=== PATIENT | male | born 1960 | race Caucasian/White ===

== ENCOUNTER 2022-03-26 08:30 | Inpatient (IN) | payer OTHER, MEDICARE ==
[~2022-03-26] VITALS: Ht 165.1 cm; Wt 65.0 kg
[2022-03-26] VITALS (15 sets, daily range): BP systolic 88–114; BP diastolic 49–95
[2022-03-26] MEDS ORDERED: NS IV 1000 ML 1,000 ML IV STA ×2 (08:54→10:21)
[2022-03-26] MEDS ORDERED: RT-ALBUTEROL/IPRATROPIUM 3 ML (DUONEB) VIAL INH STA (08:54)
--- NOTE | 2022-03-26 09:04 | ED Cough/URI ---
General Chief Complaint: Respiratory Problems Stated Complaint: SOB; CHEST CONGESTION Source: patient History of Present Illness Date Seen by Provider: Mar 26, 2022 Time Seen by Provider: 08:32 Initial Comments 62-year-old male presenting with complaints of 4 days of cough and congestion. He has been getting more shortness of breath especially with exertion. [facility] He states he has a history of diabetes, coronary artery disease, peripheral vascular disease. He denies any allergies to medicines. He has had his COVID vaccinations and boosters but is unsure if he had vaccination for influenza this season or pneumonia vaccine. He has a chronic wound to his left foot from peripheral vascular disease and gangrene that he had last year. He is following with the wound clinic and states that he was called last night by the wound clinic saying that he had a critical potassium. He had blood work drawn today but because he was feeling so short of breath with minimal exertion he decided to check into the emergency department. He denies having fever, chills, body aches, nausea, vomiting, chest pain, abdominal pain. He denies ill contacts. In general he feels run down and short of breath, especially with any exertion. He has had cardiac stents and stent in left leg but denies congestive heart failure or COPD or asthma history. He has been taking Dayquil and Nyquil for his symptoms but not felt anything was improving. Timing/Duration: getting worse (over the last 4 days) Severity/Quality: productive cough (occasionally coughing up yellow green sputum) Prior Episodes/Possible Cause: no prior episodes Modifying Factors: Worse With Activity, Worse With Coughing Associated Symptoms: cough, nasal congestion, nasal drainage, shortness of breath (especially with exertion), wheezing Allergies and Home Medications Allergies Coded Allergies: No Known Drug Allergies (Unverified , 03/26/22) Patient Home Medication List Home Medication List Reviewed: Yes Review of Systems Review of Systems Constitutional: see HPI EENTM: see HPI Respiratory: see HPI Cardiovascular: see HPI Gastrointestinal: No nausea, No vomiting Genitourinary: No dysuria Musculoskeletal: no symptoms reported Skin: see HPI (healing wound on left foot) Psychiatric/Neurological: No Symptoms Reported Hematologic/Lymphatic: Denies Blood Clots Past Pffeqzc-[id number]-Tuifyp Hx Patient Social History Tobacco Use?: No Tobacco type used: Cigarettes Smoking Status: Former Smoker (quit Jan 2022) Substance use?: No Alcohol Use?: No Past Medical History Surgery/Hospitalization HX: Hypertension, coronary artery disease with stents, peripheral vascular disease with a stent in his left leg, diabetes insulin-dependent, chronic diabetic ulcer to the left foot Surgeries: Yes Physical Exam Vital Signs - First Documented 03/26/22 08:38 Temp 35.9 Pulse 87 Resp 17 B/P (MAP) 99/59 (72) Pulse Ox 100 O2 Delivery Room Air Capillary Refill : Height: '" Weight: lbs. oz. kg; BMI Method: General Appearance: mild distress (Appears to be having slight increase in work of breathing.), thin, other (Chronically ill-appearing) HEENT: PERRL/EOMI, pharynx normal Neck: non-tender, full range of motion, supple, normal inspection Respiratory: chest non-tender, no accessory muscle use, respiratory distress (Mild respiratory distress with slight increase in work of breathing), decreased breath sounds Cardiovascular: normal peripheral pulses, regular rate, rhythm, no edema, no JVD, no murmur Gastrointestinal: normal bowel sounds, non tender, soft, no pulsatile mass Extremities: normal range of motion, no calf tenderness 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, alert, oriented x 3 Skin: warm/dry, pallor Focused Exam Sepsis Stage: Ruled Out Reason for ruling out sepsis: [place] to be more dehydration Possible Source: Pulmonary Lactate Level 03/26/22 08:50: Lactic Acid Level 3.07*H 03/26/22 10:52: Lactic Acid Level 2.88*H Time of Focused Exam: 10:10 Respiratory: Chest Non Tender, No Accessory Muscle Use, No Respiratory Distress, Decreased Breath Sounds Cardiovascular: Regular Rate, Rhythm, No Edema, No Murmur, Normal Peripheral Pulses Capillary Refill: Less Than 3 Seconds Peripheral Pulses: 2+ Carotid (R), 2+ Carotid (L), 2+ Radial Pulses (R), 2+ Radial Pulses (L) Skin: warm/dry, pallor Lactic Acid Level Laboratory Tests Test 03/26/22 08:50 03/26/22 10:52 Lactic Acid Level 3.07 MMOL/L (0.50-2.00) *H 2.88 MMOL/L (0.50-2.00) *H Within 3hrs of presentation: Admin fluids, Admin ABX, Blood cultures prior to ABX's, Focus exam, Lactate level Progress/Results/Core Measures Suspected Sepsis SIRS Temperature: Pulse: Respiratory Rate: Laboratory Tests 03/26/22 08:50: White Blood Count 10.2 Blood Pressure / Mean: 03/26/22 08:50: Lactic Acid Level 3.07*H 03/26/22 10:52: Lactic Acid Level 2.88*H Laboratory Tests 03/26/22 08:50: Creatinine 1.47H, INR Comment 1.0, Platelet Count 389, Total Bilirubin 0.4 Results/Orders Lab Results Laboratory Tests Test 03/26/22 08:50 03/26/22 10:35 03/26/22 10:52 Range/Units White Blood Count 10.2 4.3-11.0 10^3/uL Red Blood Count 4.37 4.30-5.52 10^6/uL Hemoglobin 9.9 L 13.3-17.7 g/dL Hematocrit 31 L 40-54 % Mean Corpuscular Volume 72 L 80-99 fL Mean Corpuscular Hemoglobin 23 L 25-34 pg Mean Corpuscular Hemoglobin Concent 32 32-36 g/dL Red Cell Distribution Width 15.9 H 10.0-14.5 % Platelet Count 389 130-400 10^3/uL Mean Platelet Volume 8.9 L 9.0-12.2 fL Immature Granulocyte % (Auto) 1 % Neutrophils (%) (Auto) 88 H 42-75 % Lymphocytes (%) (Auto) 5 L 12-44 % Monocytes (%) (Auto) 6 0-12 % Eosinophils (%) (Auto) 0 0-10 % Basophils (%) (Auto) 0 0-10 % Neutrophils # (Auto) 9.0 H 1.8-7.8 10^3/uL Lymphocytes # (Auto) 0.5 L 1.0-4.0 10^3/uL Monocytes # (Auto) 0.6 0.0-1.0 10^3/uL Eosinophils # (Auto) 0.0 0.0-0.3 10^3/uL Basophils # (Auto) 0.0 0.0-0.1 10^3/uL Immature Granulocyte # (Auto) 0.1 0.0-0.1 10^3/uL Neutrophils % (Manual) 87 % Lymphocytes % (Manual) 5 % Monocytes % (Manual) 4 % Basophils % (Manual) 1 % Band Neutrophils 3 % Nucleated Red Blood Cells 2 Platelet Estimate NORMAL Polychromasia SLIGHT Hypochromasia MODERATE Poikilocytosis MODERATE Microcytosis MODERATE Macrocytosis SLIGHT [place] Cells MODERATE Elliptocytes SLIGHT Prothrombin Time 14.0 12.2-14.7 SEC INR Comment 1.0 0.8-1.4 Activated Partial Thromboplast Time 38 H 24-35 SEC D-Dimer 2.22 H 0.00-0.49 UG/ML Sodium Level 125 *L 135-145 MMOL/L Potassium Level 5.8 H 3.6-5.0 MMOL/L Chloride Level 91 L 98-107 MMOL/L Carbon Dioxide Level 18 L 21-32 MMOL/L Anion Gap 16 H 5-14 MMOL/L Blood Urea Nitrogen 65 H 7-18 MG/DL Creatinine 1.47 H 0.60-1.30 MG/DL Estimat Glomerular Filtration Rate 53 BUN/Creatinine Ratio 44 Glucose Level 189 H 70-105 MG/DL Lactic Acid Level 3.07 *H 2.88 *H 0.50-2.00 MMOL/L Calcium Level 9.0 8.5-10.1 MG/DL Corrected Calcium 9.2 8.5-10.1 MG/DL Magnesium Level 1.9 1.6-2.4 MG/DL Total Bilirubin 0.4 0.1-1.0 MG/DL Aspartate Amino Transf (AST/SGOT) 55 H 5-34 U/L Alanine Aminotransferase (ALT/SGPT) 71 H 0-55 U/L Alkaline Phosphatase 121 40-136 U/L Troponin I 0.86 *H <0.30 NG/ML Pro-B-Type Natriuretic Peptide 9208.0 H <125.0 PG/ML Total Protein 6.5 6.4-8.2 GM/DL Albumin 3.8 3.2-4.5 GM/DL Lipase 16 8-78 U/L Influenza Type A (RT-PCR) Not Detected Not Detecte Influenza Type B (RT-PCR) Not Detected Not Detecte SARS-CoV-2 RNA (RT-PCR) Not Detected Not Detecte My Orders Orders - CYNTHIA MORALES MD Cbc With Automated Diff (03/26/22 08:51) Magnesium (03/26/22 08:51) Chest 1 View Ap/Pa Only (03/26/22 08:51) Ekg Tracing (03/26/22 08:51) Comprehensive Metabolic Panel (03/26/22 08:51) Protime With Inr (03/26/22 08:51) Partial Thromboplastin Time (03/26/22 08:51) O2 (03/26/22 08:51) Monitor-Rhythm Ecg Trace Only (03/26/22 08:51) Ed Iv/Invasive Line Start (03/26/22 08:51) Lipase (03/26/22 08:51) Troponin I Fs (03/26/22 08:51) Probnp Fs (03/26/22 08:51) Fibrin Degradation Products (03/26/22 08:51) Covid 19 Inhouse Test (03/26/22 08:51) Influenza A And B By Pcr (03/26/22 08:51) Isolation Central Supply Req (03/26/22 08:51) Blood Culture (03/26/22 08:51) Lactic Acid Analyzer (03/26/22 08:51) Ua Culture If Indicated (03/26/22 08:54) Albuterol/Ipra Inhalation Soln (Duoneb I (03/26/22 08:54) Svn Small Volume Nebulizer (03/26/22 08:54) Ns Iv 1000 Ml (Sodium Chloride 0.9%) (03/26/22 08:54) Manual Differential (03/26/22 08:50) Aspirin Chewable Tablet (Baby Aspirin Ch (03/26/22 09:37) Ceftriaxone 1 Gm Pre-Mix (Rocephin 1 Gm (03/26/22 09:37) Azithromycin Tablet (Zithromax Tablet) (03/26/22 09:37) Ct Angio Chest W (R/O Pe) (03/26/22 10:20) Ed Admission (Communication) (03/26/22 10:20) Ns Iv 1000 Ml (Sodium Chloride 0.9%) (03/26/22 10:21) Enoxaparin Injection (Lovenox Injection) (03/26/22 10:21) Ct Angio Chest W (R/O Pe) (03/26/22 11:04) Ct Angio Chest W (R/O Pe) (03/26/22 ) Furosemide Injection (Lasix Injection) (03/26/22 11:12) Iohexol Injection (Omnipaque 350 Mg/Ml 1 (03/26/22 11:30) Received Contrast (Hold Metformin- Contr (03/26/22 11:30) Ns (Ivpb) (Sodium Chloride 0.9% Ivpb Bag (03/26/22 11:30) Medications Given in ED Current Medications Medications Dose Ordered Sig/Michele Route Start Time Stop Time Status Last Admin Dose Admin Iohexol 100 ml ONCE ONCE IV 03/26/22 11:30 03/26/22 11:31 DC 03/26/22 11:31 80 ML Sodium Chloride 100 ml ONCE ONCE IV 03/26/22 11:30 03/26/22 11:31 DC 03/26/22 11:31 80 ML Vital Signs/I&O 03/26/22 08:38 Temp 35.9 Pulse 87 Resp 17 B/P (MAP) 99/59 (72) Pulse Ox 100 O2 Delivery Room Air Capillary Refill : Progress Note #1: Progress Note Patient at risk for life-threatening condition such as pulmonary embolism, coronary artery disease, myocardial infarction, acute congestive heart failure, renal failure, hepatic failure, COVID, influenza, sepsis, pneumothorax, pulmonary mass. Evaluate by ordering labs including CBC, chemistry panel, coags, D-dimer, urinalysis, electrocardiogram, chest x-ray, COVID swab, influenza swab, blood cultures with lactic acid. His blood pressure is running in the 95-100 systolic range so we will order normal saline 1 L IV fluid bolus for hydration. Give DuoNeb breathing treatment to try and help with his increased work of breathing. Reviewed chest x-ray when available to look for signs of infiltrate, pneumonia, pleural effusion, pneumothorax, pulmonary vascular congestion for heart failure. His oxygen saturation was 100% on room air and he was afebrile. His heart rate is in the 80s and sinus rhythm. He is able to speak in complete sentences but feels that he is short of breath. He states this is worse with exertion so concern for congestive heart failure, infection, pulmonary mass are all in his differential. Has chronic medical conditions increases risk for morbidity and mortality since he has poorly controlled diabetes, hypertension, peripheral vascular disease, coronary artery disease, quit smoking only 2 months ago. Placed on cardiac threat monitoring analyst to watch for arrhythmias or acute changes in his heart rate and vital signs. On my personal interpretation of his telemetry monitoring he was in a sinus rhythm with a heart rate in the 80s. There was no ectopy or ischemic changes on telemetry monitoring. Progress Note #2: Time: 09:20 Progress Note On my personal interpretation and review of his chest x-ray he has increased pulmonary vascular congestion with mild cardiomegaly and bilateral blunting of costophrenic angle for probable pleural effusion bilaterally. No definite infiltrate for pneumonia. No prior chest x-ray for comparison. On my personal interpretation and review of his electrocardiogram he has no prior for comparison but he has global T wave flattening and no definite ST elevation. he has Q waves in anteroseptal leads. Awaiting labs and Covid swab/Influenza swab. Progress Note #3: Time: 09:33 Progress Note Lab called with critical findings of Lactic acid of 3.07 and Troponin 0.86 and Sodium 125. Will give aspirin 324 mg po with him having elevated Troponin and concern for Non STEMI. He is getting 1 L of NS with his soft blood pressure which will help with the elevated Lactic acid and acute kidney injury with elevated BUN and Cr. With him having chronic wound in his foot this could be source of infection in addition to URI symptoms so will cover with Ceftriaxone and Azithromycin. Will have him sign record release to see if [facility] can get us any records so we can have baseline labs and cardiac testing to refer back to for comparison with testing with his current stay. Will contact Dr. Valentine for Hospitalist service to check about admit to [facility]. [id number] Valentine for the hospitalist service. Advised him of the patient's presentation as well as his current lab findings and vital signs. With his signs of a non-STEMI, heart failure, acute kidney injury, dehydration and elevated lactic acid he accepted the patient for admission to the cardiac stepdown bed. He did request to go ahead and obtain a CT angiogram of his chest since the patient had an elevated D-dimer. This would help to rule out pulmonary embolism, pulmonary mass, pulmonary infection. Continue with normal saline at 100 mL an hour for hydration. His oxygen titration continues to be 97 to 100% on room air. Patient states he is feeling a little better with tr eatment in the ED and with the DuoNeb breathing treatment. Dr. Valentine did request to go ahead and administer Lovenox for the patient with the elevated troponin. Will dose with 1 mg/kg or 60 mg subcu x1. Consult to cardiology and will page Dr. Guerrero. The elevated lactic acid was felt to be more secondary to dehydration than sepsis but he has been treated with IV fluids, antibiotics, blood cultures. Nasal swab checking for COVID and influenza still pending. Progress Note #4: Time: 11:12 Progress Note Respiratory swab for COVID and influenza was negative. [address] Guerrero. Advised him of the patient's presentation and findings for non-STEMI with elevated creatinine and elevated troponin with proBNP of 9200. He was in agreement with the Lovenox and aspirin and did request to give a single dose of Lasix 40 mg IV x1 since he was showing some signs of heart failure with elevated proBNP and increased pulmonary vascular congestion. Otherwise he advised that he would see the patient in consult and work with Dr. Valentine for continued care. Patient continues to have cardiac telemetry monitoring showing a normal sinus rhythm in the 80s without ectopy. His blood pressure is 106/65 with IV fluids. His oxygen saturation remains 97 to 100% on room air. He did have increased breath movement after the DuoNeb breathing treatment. He remained hemodynamically stable here in ED and awaiting EMS for transport to [facility]. He did receive Lovenox 60 mg SC and was getting Normal Saline at 100 mls/hr for hydration. Will administer the Furosemide 40 mg IV prior to transfer. He went for CT angiography of his chest at 1120. Progress Note #5: Time: 12:06 Progress Note His repeat Lactic acid was slightly improved down to 2.88 from initial 3.07. Continue with gentle hydration and monitoring. I reviewed the radiologist report on the CT angiogram of the chest. This showed no pulmonary embolism but he did have pleural effusion and changes in the right lower lobe for possible atypical infection. He has had initial treatment with Rocephin and Zithromax for possible pulmonary infection. Continued care with the hospitalist, Dr. Valentine, and safety and health consultant, Dr. Guerrero. ECG Initial ECG Impression Date: Mar 26, 2022 Initial ECG Impression Time: 08:51 Initial ECG Rate: 85 Initial ECG Rhythm: Normal Sinus Initial ECG Comparisson: No Previous ECG Available Comment On my personal interpretation and review of his electrocardiogram he shows a sinus rhythm with a heart rate of 85 bpm. ID interval [address] elevation. QT interval 381 ms with a QTc interval 423 ms. There is no prior tracing available for comparison. He does have some global T wave flattening. He has Q waves in the anteroseptal leads. Diagnostic Imaging Diagonstic Imaging: Xray Plain Films/CT/US/NM/MRI: chest Comments [facility] [place] NAME: ENRIQUE FLORES [facility] REC#: [id number] PT STATUS: REG ER : 1960 PHYSICIAN: CYNTHIA MORALES MD ADMIT DATE: 03/26/22/ER FS Draft Date of Exam:03/26/22 CHEST 1 VIEW AP/PA ONLY EXAMINATION: Chest, 1 view. HISTORY: Cough, congestion, short of breath, COVID PUI. COMPARISON: None available. FINDINGS: Heart size and pulmonary vasculature are normal. There are trace bilateral pleural effusions or pleural thickening. No consolidation or pneumothorax. The osseous structures are intact. IMPRESSION: Trace bilateral pleural effusions or pleural thickening. No other acute radiographic abnormality in the chest. Dictated on workstation # [id number] Dict: 03/26/22907 Trans: 03/26/22 0910 [id number] Interpreted by: THERON LOPEZ DO Electronically signed by: Reviewed: Reviewed by Me Diagonstic Imaging: CT (Angiography) Plain Films/CT/US/NM/MRI: chest Comments NAME: ENRIQUE FLORES [facility] REC#: [id number] PT STATUS: REG ER : 1960 PHYSICIAN: CYNTHIA MORALES MD ADMIT DATE: 03/26/22/ER FS Draft Date of Exam:03/26/22 CT ANGIO CHEST W (R/O PE) EXAMINATION: CT angiography of the chest. TECHNIQUE: Contrast enhanced thin section helical images were obtained through the chest with intravenous contrast timed for the optimal opacification of the arterial structures per CTA protocol. Post-processing, reconstructions and interpretation of angiographic images of the vessels was performed. 3D MIP reconstructions were performed and reviewed. All CT scans use one or more of the following dose optimizing techniques: automated exposure control, MA and/or KvP adjustment based on a patient size and exam type, or iterative reconstruction. HISTORY: SOB COMPARISON: None available. FINDINGS: Vascular: There are no filling defects within the pulmonary arteries. There are vascular calcifications of the aorta and coronary vessels without aneurysm. Thyroid: The thyroid is normal. Mediastinum: Heart size is normal without significant pericardial effusion. No suspicious lymphadenopathy. Lungs and airways: There is a moderate right pleural effusion. Mild groundglass opacities or atelectasis within the lung bases, right greater than left. No pneumothorax. There is a calcified granuloma within the right lower lobe. The airways are normal. Upper abdomen: The subphrenic structures are normal. Musculoskeletal: Degenerative changes of the spine without suspicious osseous lesion or compression fracture. IMPRESSION: 1. No findings of pulmonary embolus. 2. Right pleural effusion with adjacent atelectasis or ground glass opacities. Differentiation would include atypical infection. Dictated on workstation # [id number] Dict: 03/26/22 1144 Trans: 03/26/22 1156 [id number] Interpreted by: THERON LOPEZ DO Electronically signed by: Reviewed: Reviewed by Me Critical Care Note Critical Care Total Time (minutes) 60 minutes Progress 60 minutes of critical care time was spent with the patient. Time excludes separately billable procedures. Time was spent obtaining history and information from the patient as well as [facility], ordering tests and reviewing results, ordering interventions and reviewing response, discussion with patient and with consultants, documentation in the chart. Patient was at risk of increased morbidity and mortality due to his cardiac status, renal status, electrolyte imbalance, elevated lactic acid, relative hypotension. He required my direct oversight and management of his care to help treat him and try to prevent failure or further compromise of his cardiovascular, renal, metabolic systems. Departure Communication (Admissions) Time/Spoke to Admitting Phy: 10:[address] Valentine for the hospitalist service. Advised him of the patient's presentation as well as his current lab findings and vital signs. With his signs of a non-STEMI, heart failure, acute kidney injury, dehydration and elevated lactic acid he accepted the patient for admission to the cardiac stepdown bed. He did request to go ahead and obtain a CT angiogram of his chest since the patient had an elevated D-dimer. This would help to rule out pulmonary embolism, pulmonary mass, pulmonary infection. Continue with normal saline at 100 mL an hour for hydration. His oxygen titration continues to be 97 to 100% on room air. Patient states he is feeling a little better with treatment in the ED and with the DuoNeb breathing treatment. Dr. Valentine did request to go ahead and administer Lovenox for the patient with the elevated troponin. Will dose with 1 mg/kg or 60 mg subcu x1. Consult to cardiology and will page Dr. Guerrero. The elevated lactic acid was felt to be more secondary to dehydration than sepsis but he has been treated with IV fluids, antibiotics, b lood cultures. Nasal swab checking for COVID and influenza still pending. Time/Spoke to Consulting Phy: 11:[address] Guerrero. Advised him of the patient's presentation and findings for non-STEMI with elevated creatinine and elevated troponin with proBNP of 9200. He was in agreement with the Lovenox and aspirin and did request to give a single dose of Lasix 40 mg IV x1 since he was showing some signs of heart failure with elevated proBNP and increased pulmonary vascular congestion. Otherwise he advised that he would see the patient in consult and work with Dr. Valentine for continued care. Impression Primary Impression: Non-ST elevation [place] (NSTEMI) Additional Impressions: Acute kidney injury Dehydration Elevated lactic acid level Hyponatremia Hyperkalemia Congestive heart failure Qualified Codes: I50.9 - Heart failure, unspecified Upper respiratory infection with cough and congestion Dyspnea on exertion Bilateral pleural effusion Disposition: 30 STILL A PATIENT Condition: Critical Admissions Decision to Admit Reason: Admit from ER (General) Decision to Admit/Date: Mar 26, 2022 Time/Decision to Admit Time: 10:17 Departure-Patient Inst. Referrals: NO,LOCAL PHYSICIAN (PCP/Family) Primary Care Physician CYNTHIA MORALES MD Mar 26, 2022 09:04
[2022-03-26 09:07] LABS: BASOPHILS % (AUTO) 0 % (0-10); EOSINOPHILS % (AUTO) 0 % (0-10); HEMATOCRIT 31 % (40-54); HEMOGLOBIN 9.9 g/dL (13.3-17.7); LYMPHOCYTES # (AUTO) 0.5 10^3/uL (1.0-4.0); LYMPHOCYTES % (AUTO) 5 % (12-44); MEAN CORPUSCULAR HEMOGLOBIN 23 pg (25-34); MEAN CORPUSCULAR HGB CONC 32 g/dL (32-36); MEAN CORPUSCULAR VOLUME 72 fL (80-99); MEAN PLATELET VOLUME 8.9 fL (9.0-12.2); MONOCYTES # (AUTO) 0.6 10^3/uL (0.0-1.0); MONOCYTES % (AUTO) 6 % (0-12); NEUTROPHILS % (AUTO) 88 % (42-75); PLATELET COUNT 389 10^3/uL (130-400); WHITE BLOOD COUNT 10.2 10^3/uL (4.3-11.0)
--- NOTE | 2022-03-26 09:10 | Diagnostic Imaging Report ---
EXAMINATION: Chest, 1 view. HISTORY: Cough, congestion, short of breath, COVID PUI. COMPARISON: None available. FINDINGS: Heart size and pulmonary vasculature are normal. There are trace bilateral pleural effusions or pleural thickening. No consolidation or pneumothorax. The osseous structures are intact. IMPRESSION: Trace bilateral pleural effusions or pleural thickening. No other acute radiographic abnormality in the chest. Dictated by: Dictated on workstation # [id number]
[2022-03-26 09:24] LABS: FIBRIN DEGRADATION PRODUCTS 2.22 UG/ML (0.00-0.49)
[2022-03-26 09:32] LABS: CREATININE SERUM 1.47 MG/DL (0.60-1.30); POTASSIUM 5.8 MMOL/L (3.6-5.0)
[2022-03-26 09:33] LABS: ALBUMIN 3.8 GM/DL (3.2-4.5); BILIRUBIN,TOTAL 0.4 MG/DL (0.1-1.0); MAGNESIUM 1.9 MG/DL (1.6-2.4); TOTAL PROTEIN 6.5 GM/DL (6.4-8.2)
[2022-03-26] MEDS ORDERED: ASPIRIN 81 MG CHEW (CHILDREN'S ASA) PO STA (09:37)
[2022-03-26] MEDS ORDERED: cefTRIAXone 1 GM PRE-MIX 50 ML IV STA (09:37)
[2022-03-26] MEDS ORDERED: AZITHROMYCIN 250 MG TAB (ZITHROMAX) PO STA (09:37)
[2022-03-26 10:05] LABS: BAND NEUTROPHILS 3 %; BASOPHILS % (MANUAL) 1 %; HYPOCHROMASIA MODERATE; LYMPHOCYTES % (MANUAL) 5 %; MONOCYTES % (MANUAL) 4 %; NEUTROPHILS % (MANUAL) 87 %; PLATELET ESTIMATE NORMAL; POIKILOCYTOSIS MODERATE; POLYCHROMASIA SLIGHT
[2022-03-26 10:06] LABS: ELLIPT/OVALOCYTES SLIGHT; MICROCYTOSIS MODERATE
[2022-03-26 10:07] LABS: BURR CELLS MODERATE; NUCLEATED RED BLOOD CELLS 2
[2022-03-26] MEDS ORDERED: ENOXAPARIN 60 MG/0.6 ML (LOVENOX) SYR SC STA (10:21)
[2022-03-26] MEDS ORDERED: FUROSEMIDE 40 MG/4 ML INJ (LASIX) IVP STA (11:12)
[2022-03-26] MEDS ORDERED: NS 100 ML (IVPB) BAG IV ONE (11:30)
[2022-03-26] MEDS ORDERED: HOLD METFORMIN - RECEIVED CONTRAST 20 ML VIAL IV SCH (11:30)
[2022-03-26] MEDS ORDERED: IOHEXOL 350 MG/ML 100 ML (OMNIPAQUE 350) VIAL IV ONE (11:30)
--- NOTE | 2022-03-26 11:57 | Diagnostic Imaging Report ---
EXAMINATION: CT angiography of the chest. TECHNIQUE: Contrast enhanced thin section helical images were obtained through the chest with intravenous contrast timed for the optimal opacification of the arterial structures per CTA protocol. Post-processing, reconstructions and interpretation of angiographic images of the vessels was performed. 3D MIP reconstructions were performed and reviewed. All CT scans use one or more of the following dose optimizing techniques: automated exposure control, MA and/or KvP adjustment based on a patient size and exam type, or iterative reconstruction. HISTORY: SOB COMPARISON: None available. FINDINGS: Vascular: There are no filling defects within the pulmonary arteries. There are vascular calcifications of the aorta and coronary vessels without aneurysm. Thyroid: The thyroid is normal. Mediastinum: Heart size is normal without significant pericardial effusion. No suspicious lymphadenopathy. Lungs and airways: There is a moderate right pleural effusion. Mild groundglass opacities or atelectasis within the lung bases, right greater than left. No pneumothorax. There is a calcified granuloma within the right lower lobe. The airways are normal. Upper abdomen: The subphrenic structures are normal. Musculoskeletal: Degenerative changes of the spine without suspicious osseous lesion or compression fracture. IMPRESSION: 1. No findings of pulmonary embolus. 2. Right pleural effusion with adjacent atelectasis or ground glass opacities. Differentiation would include atypical infection. Dictated by: Dictated on workstation # [id number]
[2022-03-26] MEDS ORDERED: polyethylene glycoL POWDER 17 GM (MIRALAX) PACK PO PRN (12:45)
[2022-03-26] MEDS ORDERED: MELATONIN 3 MG TABLET PO PRN (12:45)
[2022-03-26] MEDS ORDERED: ANTACID SUSP 30 ML UDC (MYLANTA) PO PRN (12:45)
[2022-03-26] MEDS ORDERED: NS IV 500 ML 500 ML IV PRN (12:45)
[2022-03-26] MEDS ORDERED: BISACODYL 10 MG SUPP (DULCOLAX) PR PRN (12:45)
[2022-03-26] MEDS ORDERED: ONDANSETRON 4 MG (ZOFRAN) ORAL DISSOLVE TAB PO PRN (12:45)
[2022-03-26] MEDS ORDERED: ONDANSETRON 4 MG/2 ML (SDV) Z0FRAN IV PRN (12:45)
[2022-03-26] MEDS ORDERED: diphenhydrAMINE 50 MG/ML INJ (BENADRYL) IVP PRN (12:45)
[2022-03-26] MEDS ORDERED: diphenhydrAMINE 25 MG TAB (BENADRYL) PO PRN (12:45)
[2022-03-26] MEDS ORDERED: ACETAMINOPHEN 325 MG TABLET PO PRN (12:45)
[2022-03-26] MEDS ORDERED: ENOXAPARIN 100 MG/1 ML (LOVENOX) SYR SC SCH (12:45)
--- NOTE | 2022-03-26 13:01 | Consultation-Cardiology ---
HPI-Cardiology Cardiology Consultation: Date of Consultation 03/26/22 Time Seen by a Provider: 12:50 Date of Admission 03-26-22 Attending Physician Aurelia,Local Physician Admitting Physician Admitting Physician: Pallavi Valentine MD Attending Physician: Pallavi Valentine MD Consulting Physician Afsaneh Guerrero MD HPI: Chief Complaint: Elevated troponin CHF Mr. Flores is a 62 yr old male admitted to ICU 5 from the ED in [place], [place]. He reports for the past 5 days he has had increasing SOB, productive cough, diarrhea and poor appetite. He reports he has had chest wall pain from coug genesis. He reports abdominal discomfort. He denies any fever or chills. He reports increasing weakness, fatigue and dizziness. He states he has non- healing, gangrenous wound to his left foot for which he has been seeing Dr. Gomez at [facility] wound care. He reports he has had mild swelling of his right foot. He reports he has been compliant with his medications. Review of Systems-Cardiology Review of Systems Constitutional: chills; No fever; malaise Eyes: No vision change Ears/Nose/Throat: No epistaxis, No recent hearing loss Respiratory: As described under HPI Cardiovascular: As described under HPI Gastrointestinal: As described under HPI Genitourinary: No dysuria, No hematuria Musculoskeletal: other (chronic back pain) Skin: other (wound to left foot) Psychiatric/Neurological: No anxiety, No depression, No seizure, No focal weakness, No syncope Hematologic: No bleeding abnormalities VAN-Ytfubn-Pygzsd Hx Patient Social History Smoking Status: Former Smoker Have you traveled recently?: No Alcohol Use?: No Pt feels they are or have been: No Tobacco type used: Cigarettes Past Medical History PMH As described under Assessment. Family Medical History Family Medical History: He reports his father had CHF. Allergies and Home Medications Allergies Coded Allergies: No Known Drug Allergies (Unverified , 03/26/22) Patient Home Medication List Aspirin (Aspirin EC) 81 Mg Tablet., 81 MG PO HS, (Reported) Entered as Reported by: LORENZO QUINTANILLA on 03/26/221616 Last Action: Held Atorvastatin Calcium (Atorvastatin Calcium) 80 Mg Tablet, 40 MG PO HS, (Reported) Entered as Reported by: LORENZO QUINTANILLA on 03/26/221616 Last Action: Continued Carvedilol (Carvedilol) 12.5 Mg Tablet, 6.25 MG PO BID, (Reported) Entered as Reported by: LORENZO QUINTANILLA on 03/26/221616 Last Action: Held Cholecalciferol (Vitamin D3) (Vitamin D3) 25 Mcg (1000 Unit) Tablet, 25 MCG PO DAILY, (Reported) Entered as Reported by: LORENZO QUINTANILLA on 03/26/221616 Last Action: Held Clopidogrel Bisulfate (Clopidogrel) 75 Mg Tablet, 75 MG PO DAILY, (Reported) Entered as Reported by: LORENZO QUINTANILLA on 03/26/221616 Last Action: Continued Cyclobenzaprine HCl (Cyclobenzaprine HCl) 10 Mg Tablet, 5-10 MG PO BID PRN for MUSCLE SPASMS, (Reported) Entered as Reported by: LORENZO QUINTANILLA on 03/26/221616 Last Action: Held Empagliflozin (Jardiance) 25 Mg Tablet, 25 MG PO HS, (Reported) Entered as Reported by: LORENZO QUINTANILLA on 03/26/221616 Last Action: Held Gabapentin (Neurontin) 300 Mg Capsule, 300 MG PO BID, (Reported) Entered as Reported by: LORENOZ QUINTANILLA on 03/26/221616 Last Action: Held Insulin Aspart (Novolog) 100 Unit/Ml Susp, 5-7 UNITS SC TID, (Reported) Entered as Reported by: LORENZO QUINTANILLA on 03/26/221616 Last Action: Held Insulin Glargine,Hum.rec.anlog (Lantus) 100 Unit/Ml Vial, 40 UNITS SC HS, (Reported) Entered as Reported by: LORENZO QUINTANILLA on 03/26/221616 Last Action: Converted Lisinopril (Lisinopril) 10 Mg Tablet, 5 MG PO DAILY, (Reported) Entered as Reported by: LORENZO QUINTANILLA on 03/26/221616 Last Action: Held Metformin HCl (Metformin HCl) 1,000 Mg Tablet, 1,000 MG PO BID WITH MEALS, (Reported) Entered as Reported by: LORENZO QUINTANILLA on 03/26/221616 Last Action: Held Mirtazapine (Mirtazapine) 15 Mg Tablet, 7.5 MG PO HS, (Reported) Entered as Reported by: LORENZO QUINTANILLA on 03/26/221616 Last Action: Converted Naproxen (Naproxen) 500 Mg Tablet, 500 MG PO BID PRN for PAIN-MILD (1-4), (Reported) Entered as Reported by: LORENZO QUINTANILLA on 03/26/221616 Last Action: Held Physical Exam-Cardiology Physical Exam Vital Signs/I&O 03/26/22 03/26/22 03/26/22 03/26/22 21:00 22:14 22:19 23:00 Pulse 97 101 102 Resp 15 34 21 B/P (MAP) 99/64 (76) 96/65 (75) 94/67 (76) Pulse Ox 95 94 98 99 O2 Delivery Room Air Room Air Room Air Room Air 03/26/22 03/27/22 03/27/22 03/27/22 23:24 00:01 01:00 01:00 Temp 36.3 Pulse 101 98 97 97 Resp 18 B/P (MAP) 94/67 (76) 95/64 (74) 98/69 (79) Pulse Ox 98 100 96 O2 Delivery Room Air Room Air Room Air 03/27/22 03/27/22 03/27/22 03/27/22 02:00 03:00 03:12 03:45 Temp 36.7 Pulse 98 102 97 Resp 18 B/P (MAP) 82/63 (69) 103/77 (86) 103/77 (86) Pulse Ox 98 99 98 99 O2 Delivery Room Air Room Air Room Air Room Air 03/27/22 03/27/22 03/27/22 03/27/22 04:00 05:00 06:00 06:58 Pulse 94 99 93 97 B/P (MAP) 97/70 (79) 106/73 (84) 96/83 (87) Pulse Ox 100 96 99 O2 Delivery Room Air Room Air Room Air 03/27/22 03/27/22 03/27/22 07:00 07:23 08:00 Temp 36.1 Pulse 96 97 Resp 12 14 B/P (MAP) 115/77 (90) 119/81 (94) Pulse Ox 98 99 O2 Delivery Room Air Room Air 03/27/22 00:00 Intake Total 150 ml Output Total 1000 ml Balance -850 ml Capillary Refill : Less Than 3 Seconds Constitutional: AAO x 3, well-developed, well-nourished HEENT: PERRL, hearing is well preserved, oral hygience is good Neck: No carotid bruit; carotid pulses are 2 + bilaterally Respiratory: No accessory muscle use, No respiratory distress; chest expansion is symmetric, other (diminished bases bilat) Cardiovascular: regular rate-rhythm; No JVD; S1 and S2 Gastrointestinal: No tender; soft, audible bowel sounds Extremities: no lower extremity edema bilateral Neurologic/Psychiatric: grossly intact (moves all extremities) Skin: pallor, other (dressing to left foot - not removed) Data Review Labs Laboratory Tests 03/26/22 10:35: Influenza Type A (RT-PCR) Not Detected, Influenza Type B (RT-PCR) Not Detected, SARS-CoV-2 RNA (RT-PCR) Not Detected 03/26/22 10:52: Lactic Acid Level 2.88*H 03/26/22 13:10: Lactic Acid Level 3.43*H, Erythrocyte Sedimentation Rate 16, Sodium Level 126L, Potassium Level 5.1H, Chloride Level 97L, Carbon Dioxide Level 14L, Anion Gap 15H, Blood Urea Nitrogen 64H, Creatinine 1.60H, Estimat Glomerular Filtration Rate 48, BUN/Creatinine Ratio 40, Glucose Level 195H, Calcium Level 8.5, Troponin I 1.951*H, C-Reactive Protein High Sensitivity 3.17H, Prealbumin 16.9L, Procalcitonin 0.07 03/26/22 15:20: Lactic Acid Level 3.74*H 03/26/22 16:46: Iron Level 15L, Total Iron Binding Capacity 291, Unsaturated Iron Binding Capacity 276, Transferrin % Saturation 5L, Ferritin 42.1 03/26/22 17:26: Lactic Acid Level 3.05*H, Troponin I 1.756*H 03/26/22 17:34: Glucometer 204H 03/26/22 19:38: Lactic Acid Level 2.11*H 03/26/22 21:07: Glucometer 228H 03/26/22 21:43: Lactic Acid Level 1.37 03/27/22 04:32: White Blood Count 8.5, Red Blood Count 3.69L, Hemoglobin 8.4L, Hematocrit 26L, Mean Corpuscular Volume 71L, Mean Corpuscular Hemoglobin 23L, Mean Corpuscular Hemoglobin Concent 32, Red Cell Distribution Width 15.9H, Platelet Count 361, Mean Platelet Volume 9.0, Immature Granulocyte % (Auto) 1, Neutrophils (%) (Auto) 80H, Lymphocytes (%) (Auto) 8L, Monocytes (%) (Auto) 11, Eosinophils (%) (Auto) 0, Basophils (%) (Auto) 1, Neutrophils # (Auto) 6.8, Lymphocytes # (Auto) 0.7L, Monocytes # (Auto) 1.0, Eosinophils # (Auto) 0.0, Basophils # (Auto) 0.1, Immature Granulocyte # (Auto) 0.0 03/27/22 04:39: Sodium Level 133L, Potassium Level 4.6, Chloride Level 103, Carbon Dioxide Level 19L, Anion Gap 11, Blood Urea Nitrogen 55H, Creatinine 1.19, Estimat Glomerular Filtration Rate 69, BUN/Creatinine Ratio 46, Glucose Level 91, Calcium Level 8.3L, Corrected Calcium 8.9, Magnesium Level 1.9, Total Bilirubin 0.2, Aspartate Amino Transf (AST/SGOT) 52H, Alanine Aminotransferase (ALT/SGPT) 88H, Alkaline Phosphatase 96, Total Protein 5.6L, Albumin 3.3, Procalcitonin 0.07 03/27/22 05:18: Glucometer 71 03/27/22 06:17: Glucometer 81 Microbiology 03/26/22 Gram Stain, Resulted Pending 03/26/22 Wound Culture - Preliminary, Resulted Gram Negative Lul Radiology NAME: ENRIQUE FLORES [facility] REC#: [id number] PT STATUS: REG ER : 1960 PHYSICIAN: CYNTHIA MORALES MD ADMIT DATE: 03/26/22/ER FS Draft Date of Exam:03/26/22 CT ANGIO CHEST W (R/O PE) EXAMINATION: CT angiography of the chest. TECHNIQUE: Contrast enhanced thin section helical images were obtained through the chest with intravenous contrast timed for the optimal opacification of the arterial structures per CTA protocol. Post-processing, reconstructions and interpretation of angiographic images of the vessels was performed. 3D MIP reconstructions were performed and reviewed. All CT scans use one or more of the following dose optimizing techniques: automated exposure control, MA and/or KvP adjustment based on a patient size and exam type, or iterative reconstruction. HISTORY: SOB COMPARISON: None available. FINDINGS: Vascular: There are no filling defects within the pulmonary arteries. There are vascular calcifications of the aorta and coronary vessels without aneurysm. Thyroid: The thyroid is normal. Mediastinum: Heart size is normal without significant pericardial effusion. No suspicious lymphadenopathy. Lungs and airways: There is a moderate right pleural effusion. Mild groundglass opacities or atelectasis within the lung bases, right greater than left. No pneumothorax. There is a calcified granuloma within the right lower lobe. The airways are normal. Upper abdomen: The subphrenic structures are normal. Musculoskeletal: Degenerative changes of the spine without suspicious osseous lesion or compression fracture. IMPRESSION: 1. No findings of pulmonary embolus. 2. Right pleural effusion with adjacent atelectasis or ground glass opacities. Differentiation would include atypical infection. Dictated on workstation # [id number] Dict: 03/26/22 1144 Trans: 03/26/22 1156 [id number] Interpreted by: THERON LOPEZ DO Electronically signed by: NAME: ENRIQUE FLORES [facility] REC#: [id number] PT STATUS: REG ER : 1960 PHYSICIAN: CYNTHIA MORALES MD ADMIT DATE: 03/26/22/ER FS Signed Date of Exam:03/26/22 CHEST 1 VIEW AP/PA ONLY EXAMINATION: Chest, 1 view. HISTORY: Cough, congestion, short of breath, COVID PUI. COMPARISON: None available. FINDINGS: Heart size and pulmonary vasculature are normal. There are trace bilateral pleural effusions or pleural thickening. No consolidation or pneumothorax. The osseous structures are intact. IMPRESSION: Trace bilateral pleural effusions or pleural thickening. No other acute radiographic abnormality in the chest. Dictated by: Dictated on workstation # [id number] Dict: 03/26/22 0908 Trans: 03/26/22919 [id number] Interpreted by: THERON LOPEZ DO Electronically signed by: THERON LOPEZ DO 03/26/22919 ECG Impression ECG Initial ECG Rhythm: Normal Sinus A/P-Cardiology Assessment/Admission Diagnosis Elevated troponin - NSTEMI vs Type 2 MA d/t acute renal failure, sepsis and heart failure Decompensated CHF Sepsis - management per medical services Aute renal failure - likely acute on chronic Electrolyte abnormalities Elevated bilirubin level of undetermined etiology H/O CAD - MA with stents placed in 2000 and 2006 at [facility] H/O HTN HLD DM H/O gangrenous wound to left foot - follows with Dr. Gomez at [facility] for wound care Probable COPD H/O tobaccoism - quit 2 months ago Discussion and Recomendations Elevated troponin - NSTEMI (ACS) vs Type II MA secondary to CHF, sepsis - continue ASA and Lovenox - start BB when BP is adequate CHF - treat with diuretics Acute renal insufficiency - Continue IVF Sepsis - undetermined source - management per medical services Management of left foot wound per medical services Monitor lab closely Replace electrolytes as indicated Further recs will be based on his hospital course We would like to thank medical services for this consult WARD ENGLISH Mar 26, 2022 13:01
[2022-03-26 13:41] LABS: CALCIUM 8.3 MG/DL (8.5-10.1); CREATININE SERUM 1.56 MG/DL (0.60-1.30)
[2022-03-26] MEDS ORDERED: RT-ALBUTEROL/IPRATROPIUM 3 ML (DUONEB) VIAL INH PRN (14:00)
[2022-03-26] MEDS: NS IV 1000 ML 1,000 ML IV SCH (14:15)
--- NOTE | 2022-03-26 15:07 | Wound Care Assessment ---
Wound Care Assessment Date Seen by Provider: Mar 26, 2022 Time Seen by Provider: 15:02 Chief Complaint DFU L. lateral foot HPI This pleasant 62 year old gentleman presents to our hospital with cardiac concerns (NSTEMI and CHF exacerbation). He is noted to have chronic ulceration to left lateral foot (per patient present for >1 year). He has been under the care of Dr. Virgilio Gomez and had plans for plain films of area and outpatient wound vac to initiate at next office visit. He does have a reported h/o PAD with stenting in the past. He is a former smoker (quit in January). He does have anemia of unknown etiology and mild acute kidney injury. He has elevated lactic acid and is currently undergoing workup by primary team. Wound cultures and blood cultures are ordered. He is currently on Rocephin and Azithromycin. He has a long h/o DM and states that he has good glycemic control with average FSBS 120-150's generally. He has been slightly higher today on admit. I agree with current work up and will plan for Vashe bid WTD and plain films (when stable to do so). I will also add ESR, CRP and prealbumin to blood in lab. He is advised on the importance of F/U with Dr. Gomez upon discharge to continue with outpatient plan of care. Past Medical History: Admits Diabetes Type II, Admits Heart Disease, Admits Myocardial Infarction, Admits Peripheral Artery Disease Smoking Status: Former Smoker Review of Systems General: Other (Thin) Pulmonary: Dyspnea, Cough Exam Vital Signs Date Time Temp Pulse Resp B/P (MAP) Pulse Ox O2 Delivery O2 Flow Rate FiO2 03/26/22 14:00 97 20 98/49 (65) 90 Room Air 03/26/22 13:49 36.1 21 Capillary Refill : Less Than 3 Seconds General Appearance: no apparent distress, thin HEENT: other (hearing wnl) Neck: full range of motion Cardiovascular: no edema Respiratory: no respiratory distress, no accessory muscle use Extremities: non-tender, normal inspection, no pedal edema Neurologic/Psychiatric: alert, normal mood/affect, oriented x 3 Skin: normal color Skin Problem Location: other (L. foot) Wound assessment: 6.0x3.0x0.5cm. The epithelialization is small. There is no t unneling. Undermining from 6-7 at 0.5cm. Drainage is small and serous. Granulation is large and pink, necrotic is small and slough, the margins show epibole. Results Laboratory Tests 03/26/22 08:50: White Blood Count 10.2, Red Blood Count 4.37, Hemoglobin 9.9L, Hematocrit 31L, Mean Corpuscular Volume 72L, Mean Corpuscular Hemoglobin 23L, Mean Corpuscular Hemoglobin Concent 32, Red Cell Distribution Width 15.9H, Platelet Count 389, Mean Platelet Volume 8.9L, Immature Granulocyte % (Auto) 1, Neutrophils (%) (Auto) 88H, Lymphocytes (%) (Auto) 5L, Monocytes (%) (Auto) 6, Eosinophils (%) (Auto) 0, Basophils (%) (Auto) 0, Neutrophils # (Auto) 9.0H, Lymphocytes # (Auto) 0.5L, Monocytes # (Auto) 0.6, Eosinophils # (Auto) 0.0, Basophils # (Auto) 0.0, Immature Granulocyte # (Auto) 0.1, Neutrophils % (Manual) 87, Lymphocytes % (Manual) 5, Monocytes % (Manual) 4, Basophils % (Manual) 1, Band Neutrophils 3, Nucleated Red Blood Cells 2, Platelet Estimate NORMAL, Polychromasia SLIGHT, Hypochromasia MODERATE, Poikilocytosis MODERATE, Chi rocytosis MODERATE, Macrocytosis SLIGHT, [place] Cells MODERATE, Elliptocytes SLIGHT, Prothrombin Time 14.0, INR Comment 1.0, Activated Partial Thromboplast Time 38H, D-Dimer 2.22H, Sodium Level 125*L, Potassium Level 5.8H, Chloride Level 91L, Carbon Dioxide Level 18L, Anion Gap 16H, Blood Urea Nitrogen 65H, Creatinine 1.47H, Estimat Glomerular Filtration Rate 53, BUN/Creatinine Ratio 44, Glucose Level 189H, Lactic Acid Level 3.07*H, Calcium Level 9.0, Corrected Calcium 9.2, Magnesium Level 1.9, Total Bilirubin 0.4, Aspartate Amino Transf (AST/SGOT) 55H, Alanine Aminotransferase (ALT/SGPT) 71H, Alkaline Phosphatase 121, Troponin I 0.86*H, Pro-B-Type Natriuretic Peptide 9208.0H, Total Protein 6.5, Albumin 3.8, Lipase 16 03/26/22 10:35: Influenza Type A (RT-PCR) Not Detected, Influenza Type B (RT-PCR) Not Detected, SARS-CoV-2 RNA (RT-PCR) Not Detected 03/26/22 10:52: Lactic Acid Level 2.88*H 03/26/22 13:10: Sodium Level 126L, Potassium Level 5.0, Chloride Level 97L, Carbon Dioxide Level 15L, Anion Gap 14, Blood Urea Nitrogen 62H, Creatinine 1.56H, Estimat Glomerular Filtration Rate 50, BUN/Creatinine Ratio 40, Glucose Level 196H, Lactic Acid Level 3.43*H, Calcium Level 8.3L, Troponin I 1.951*H Assessment/Plan/Dx Assessment: 1. Diabetic foot ulcer L. lateral foot 2. DM2 with hyperglycemic and neuropathy 3. Refractory anemia (etiology unclear) 4. Acute kidney injury 5. NSTEMI with CHF and pleural effusion Plan: 1. Check plain film left foot with ESR and CRP for osteomyelitis evaluation 2. Check prealbumin 3. Defer cardiac evaluation to primary and cardiology teams 4. Agree with current antibiotics, wound and blood cultures. Target antibiotics as indicated 5. Plan for Vashe WTD bid while staying with us and transition back to Dr. Gomez's capable hands upon d/c to continue in his wound plan of care. Will forward plain films his way. NAZIA LAZO MD Mar 26, 2022 15:07
[2022-03-26] MEDS: RT-ALBUTEROL/IPRATROPIUM 3 ML (DUONEB) VIAL INH SCH ×2 (15:42→22:19)
--- NOTE | 2022-03-26 15:48 | Diagnostic Imaging Report ---
INDICATION: Osteomyelitis, pain. COMPARISON: None available TECHNIQUE: 3 radiographs of the left foot dated 03/26/2022. FINDINGS: A bandage is noted overlying the midfoot with resultant deformity and constriction of the overlying soft tissues. This is most prominent overlying the proximal 5th metatarsal. Minimal cortical irregularity with lucency is suggested involving the lateral base of the 5th metatarsal. No acute fracture or dislocation. Plate and screw fixation of the 1st metatarsal is noted. Moderate degenerative changes the 1st MTP joint with moderate joint space narrowing. Additional mild scattered degenerative changes. The Lisfranc joint is well aligned. Advanced background vascular calcifications are identified. IMPRESSION: Minimal cortical irregularity and lucency involving the lateral base of 5th metatarsal with associated overlying bandage. Given appearance, this could relate to minimal osteomyelitis. Recommend radiographic follow-up. Clinical correlation is also recommended. Post surgical changes associated with the 1st metatarsal without hardware complication. Scattered degenerative changes, greatest involving the 1st MTP joint. Dictated by: Dictated on workstation # [id number]
[2022-03-26] MEDS ORDERED: EMPA25TA PO (16:17)
[2022-03-26] MEDS ORDERED: INSU100V16 SC (16:17)
[2022-03-26] MEDS ORDERED: CLOP75TA28 PO (16:17)
[2022-03-26] MEDS ORDERED: INSU100V6 SC (16:17)
[2022-03-26] MEDS ORDERED: LISI10TA25 PO (16:17)
[2022-03-26] MEDS ORDERED: ASPI-1238 PO (16:17)
[2022-03-26] MEDS ORDERED: CHOL-34 PO (16:17)
[2022-03-26] MEDS ORDERED: GABA300C PO (16:17)
[2022-03-26] MEDS ORDERED: MIRT-68 PO (16:17)
[2022-03-26] MEDS ORDERED: METF-399 PO (16:17)
[2022-03-26] MEDS ORDERED: ATOR80TA76 PO (16:17)
[2022-03-26] MEDS ORDERED: NAPR-915 PO (16:17)
[2022-03-26] MEDS ORDERED: CYCL10TA25 PO (16:17)
[2022-03-26] MEDS ORDERED: CARV12.53 PO (16:17)
--- NOTE | 2022-03-26 16:34 | Tele-ICU Consult ---
History of Present Illness History of Present Illness Date Seen by Provider: Mar 26, 2022 Time Seen by Provider: 16:33 Date of Admission (Tele-ICU Physician , consultation as per request of PCP Service provided via interactive audio and video telecommunications E-CARE system to a patient admitted to ICU bed in [facility]. Available chart/ vitals / labs / Images reviewed H&P is from ER notes Patient's information available about PMH, Shx, Fhx allergy reviewed inEMR. ROS as per chart and RN report Now in ICU, hemodynamically stable Video assessment done using teleICU camera, rest of exam as per RN Discussed with RN. Consultants: Hospital course: (03/26) 62y/o M admitted with NSTEMI, Hyponatremia, CHF & possible pneumonia A/P ID *PNAsuspected ( RLL , CAP) ( NEG covid and influenza) - started on Ceftriaxone and Azithromycin *Chronic wound to his left foot - wound service to follow non-STEMI, - full dose lovenox KELVIN - hypoperfusion - follow Hyponatremia ( baseline unknown , AAO , no Sz0 - received lasix and IVF in ER - will not order urine labs , repeat Na Elv lactate - received IVF and lasix in ER - related to hypoperfusion - IVF given in ER - follow elevated D-dimer - CTA chest neg for PE Right pleural effusion - small , probaly parapneumonic Anemia - follow , no sign of bleeding PVD Lines : periph , (Central Line Necessity Reviewed) Stokes: OG: Nutrition: Analgesia: Anxiety/ delirium VTE Prophylaxis: dion full dose Stress Ulcer Prophylaxis: na Plans in collaboration with bedside consultants and IM MDs. Discussed with RN to reach out if any questions or concerns A total of 31 minutes of critical care time was devoted to this patient today, required to treat and/or prevent further deterioration of critical care co ndition ( as above ) . I am remotely monitoring this patient from another state. I am unable to do the bedside exam, and history/physical and pertinent information is taken from other notes in the computer and bedside staff. . Allergies and Home Medications Allergies Coded Allergies: No Known Drug Allergies (Unverified , 03/26/22) Home Medications Aspirin 81 Mg Tablet., 81 MG PO HS, (Reported) Atorvastatin Calcium 80 Mg Tablet, 40 MG PO HS, (Reported) TAKES OF AN 80MG TAB Carvedilol 12.5 Mg Tablet, 6.25 MG PO BID, (Reported) TAKES OF A 12.5MG TAB Cholecalciferol (Vitamin D3) 25 Mcg (1000 Unit) Tablet, 25 MCG PO DAILY, (Reported) Clopidogrel Bisulfate 75 Mg Tablet, 75 MG PO DAILY, (Reported) LAST FILLED 06-06-2021 #90/90 DAY SUPPLY Cyclobenzaprine HCl 10 Mg Tablet, 5-10 MG PO BID PRN for MUSCLE SPASMS, (Reported) Empagliflozin 25 Mg Tablet, 25 MG PO HS, (Reported) LAST FILLED 10-29-2021 #90/90 DAY SUPPLY Gabapentin 300 Mg Capsule, 300 MG PO BID, (Reported) LAST FILLED 10-30-2021 #180/ DAY SUPPLY Insulin Aspart 100 Unit/Ml Susp, 5-7 UNITS SC TID, (Reported) Insulin Glargine,Hum.rec.anlog 100 Unit/Ml Vial, 40 UNITS SC HS, (Reported) Lisinopril 10 Mg Tablet, 5 MG PO DAILY, (Reported) TAKES OF A 10MG Metformin HCl 1,000 Mg Tablet, 1,000 MG PO BID WITH MEALS, (Reported) LAST FILLED 06-06-2021 #180/90 DAY SUPPLY Mirtazapine 15 Mg Tablet, 7.5 MG PO HS, (Reported) LAST FILLED 10-29-2021 #45/ DAY SUPPLY Naproxen 500 Mg Tablet, 500 MG PO BID PRN for PAIN-MILD (1-4), (Reported) Past Medical/Social/Family Hx Patient Social History Tobacco Use?: Yes Tobacco type used: Cigarettes Smoking Status: Former Smoker Smokeless Tobacco Frequency: Never a User Use of E-Cig and/or Vaping dev: No Substance use?: No Alcohol Use?: No Pt stated abuse/neglect: No Immunizations Up To Date Influenza Vaccine Up-to-Date: No; Not Current Tetanus Booster (TDap): Unknown Hepatitis A: No Hepatitis B: No TB Skin Test: None Current Status Advance Directives: No Communicates: Verbally Primary Language: Puerto Rican Preferred Spoken Language: [place] Rican Is interpretation needed?: No Implanted or Applied Medical D: Stents Review of Systems Constitutional: see HPI Focused Exam Lactate Level 03/26/22 10:52: Lactic Acid Level 2.88*H 03/26/22 13:10: Lactic Acid Level 3.43*H 03/26/22 15:20: Lactic Acid Level 3.74*H Height, Weight, BMI Height: '" Weight: lbs. oz. kg; 25.02 BMI Method: Time of Focused Exam: 10:10 Lactic Acid Level Laboratory Tests Test 03/26/22 13:10 03/26/22 15:20 Lactic Acid Level 3.43 MMOL/L (0.50-2.00) *H 3.74 MMOL/L (0.50-2.00) *H Exam Exam Patient acknowledged, consented, and participated in this virtual visit which was conducted using real time audio/video Vital Signs Date Time Temp Pulse Resp B/P (MAP) Pulse Ox O2 Delivery O2 Flow Rate FiO2 03/26/22 16:00 98 13 95/67 (76) 96 Room Air 03/26/22 15:42 100 Room Air 03/26/22 15:15 102 15 108/74 (85) 100 Room Air 03/26/22 14:00 97 20 98/49 (65) 90 Room Air 03/26/22 13:49 36.1 96 100 21 03/26/22 13:00 96 17 101/75 (84) 100 Room Air 03/26/22 12:53 Room Air 03/26/22 12:35 96 03/26/22 12:30 36.1 96 22 94/59 (71) 100 Room Air 03/26/22 12:05 88 16 106/56 100 Room Air 03/26/22 08:38 35.9 87 17 99/59 (72) 100 Room Air Height & Weight Height: '" Weight: lbs. oz. kg; 25.02 BMI Method: General Appearance: No Apparent Distress Respiratory: Chest Non Tender, No Accessory Muscle Use, No Respiratory Distress, Decreased Breath Sounds Cardiovascular: Regular Rate, Rhythm, No Edema, No Murmur, Normal Peripheral Pulses Capillary Refill: Less Than 3 Seconds Peripheral Pulses: 2+ Carotid (R), 2+ Carotid (L), 2+ Radial Pulses (R), 2+ Radial Pulses (L) Gastrointestinal: normal bowel sounds, non tender, soft, no pulsatile mass Results Lab Laboratory Tests 03/26/22 08:50 03/26/22 13:10 Assessment/Plan Assessment/Plan 1 CLEMENTINA ALLISON MD Mar 26, 2022 16:34
--- NOTE | 2022-03-26 16:53 | History & Physical-Hospitalist ---
History of Present Illness HPI/Chief Complaint Kip Gilman is a 62 year old male with PMH HTN, T2DM, HLD, CAD, PAD, former smoker, who presented with shortness of breath. He reports having symptoms for about 4 days. He also had a cough. He reports chest pain with deep breaths. He denies fevers and chills. He denies abdominal pain. He denies nausea and vomiting. He denies diarrhea. He has a chronic foot ulcer and follows with wound care. Source: patient Exam Limitations: no limitations Date Seen 03/26/22 Time Seen by a Provider: 13:15 Attending Physician No,Local Physician PCP Admitting Physician: Pallavi Weeks MD Attending Physician: Pallavi Weeks MD Referring Physician Date of Admission Mar 26, 2022 at 12:19 Home Medications & Allergies Home Medications Reviewed patient Home Medication Reconciliation performed by pharmacy medication reconciliations scada technician and/or nursing. Patients Allergies have been reviewed. Allergies Allergies Coded Allergies No Known Drug Allergies (Unverified03/26/22) Past Kmnmszy-Dxspqq-Hdiaxa Hx Patient Social History Tobacco Use?: Yes Tobacco type used: Cigarettes Smoking Status: Former Smoker Smokeless Tobacco Frequency: Never a User Use of E-Cig and/or Vaping dev: No Substance use?: No Alcohol Use?: No Pt feels they are or have been: No Immunizations Up To Date Tetanus Booster (TDap): Unknown Hepatitis A: No Hepatitis B: No Current Status Advance Directives: No Communicates: Verbally Primary Language: Palauan Preferred Spoken Language: Palauan Is interpretation needed?: No Implanted or Applied Medical D: Stents Past Medical History Coronary Artery Disease, High Cholesterol, Hypertension, Peripheral Vascular Diabetes, Insulin dep Family Medical History No Pertinent Family Hx Review of Systems Constitutional: weakness EENTM: no symptoms reported Respiratory: cough, short of breath Cardiovascular: chest pain Gastrointestinal: no symptoms reported Physical Exam Physical Exam Vital Signs Vital Signs - First Documented 03/26/22 03/26/22 08:38 13:49 Temp 35.9 Pulse 87 Resp 17 B/P (MAP) 99/59 (72) Pulse Ox 100 O2 Delivery Room Air FiO2 21 Capillary Refill : Less Than 3 Seconds Height, Weight, BMI Height: '" Weight: lbs. oz. kg; 25.02 BMI Method: General Appearance: No Apparent Distress, WD/WN HEENT: PERRL/EOMI, Pharynx Normal Neck: Normal Inspection, Supple Respiratory: Lungs Clear, Normal Breath Sounds, No Respiratory Distress Cardiovascular: Regular Rate, Rhythm, No Murmur Gastrointestinal: Normal Bowel Sounds, Soft Extremity: Normal Inspection, No Pedal Edema Neurologic/Psychiatric: Alert, Normal Mood/Affect Skin: Normal Color, Warm/Dry Results Results/Procedures Labs Laboratory Tests 03/26/22 08:50 03/26/22 13:10 Patient resulted labs reviewed. Imaging: Reviewed Imaging Report Assessment/Plan Admission Diagnosis NSTEMI Admission Status: Inpatient Order (span 2 midnights) Reason for Inpatient Admission: Cardiac evaluation Assessment and Plan NSTEMI CAD CHF HLD Troponin elevated, trendin up Cardiology consulted ASA Plavix Lovenox NPO at midnight Trend troponin Echo ordered Lactic acidosis KELVIN vs CKD Not septic, no leukocytosis, no fever CXR without infiltrate, right pleural effusion Check procal Repeat CXR tomorrow morning Received Rocephin and Azithromycin in ER KELVIN likely due to dehydration, unknown baseline IV fluids T2DM Levemir, decreased dose Sliding scale insulin HTN Hold antihypertensives due to low blood pressure PAD Chronic foot wound Wound care consulted Critical Care Critically Ill Patient Diagnosis/Problems Diagnosis/Problems (1) Non-ST elevation [place] (NSTEMI) Status: Acute (2) Congestive heart failure Status: Acute Qualifiers: Heart failure type: unspecified Heart failure chronicity: unspecified Qualified Codes: I50.9 - Heart failure, unspecified (3) Lactic acidosis Status: Acute (4) KELVIN (acute kidney injury) Status: Acute (5) HTN (hypertension) Status: Chronic (6) HLD (hyperlipidemia) Status: Chronic (7) CAD (coronary artery disease) Status: Chronic (8) PAD (peripheral artery disease) Status: Chronic (9) Chronic ulcer of left foot due to diabetes mellitus Status: Chronic (10) T2DM (type 2 diabetes mellitus) Status: Chronic Qualifiers: Diabetes mellitus supervisor intermediates insulin use: with mcc use Diabetes mellitus complication status: with hyperglycemia Qualified Codes: E11.65 - Type 2 diabetes mellitus with hyperglycemia; Z79.4 - termite exterminator helper (current) use of insulin PALLAVI WEEKS MD Mar 26, 2022 16:53
--- NOTE | 2022-03-26 16:56 | Consultation-Cardiology ---
HPI-Cardiology Cardiology Consultation: Date of Consultation 03/26/22 Time Seen by a Provider: 16:00 Date of Admission Attending Physician Aurelia,Local Physician Admitting Physician Admitting Physician: Pallavi Valentine MD Attending Physician: Pallavi Valentine MD Consulting Physician CHRISTY ANTONIO MD, MA, FACP, FACC, [facility] [place], CCDS HPI: Chief Complaint: Elevated troponin CHF Mr. Gilman is a 62 yr old male admitted to ICU 5 from the ED in [place], [place]. He reports for the past 5 days he has had increasing SOB, productive cough, diarrhea and poor appetite. He reports he has had chest wall pain from coughing. He reports abdominal discomfort. He denies any fever or chills. He reports increasing weakness, fatigue and dizziness. He states he has non- healing, gangrenous wound to his left foot for which he has been seeing Dr. Gomez at [facility] wound care. He reports he has had mild swelling of his right foot. He reports he has been compliant with his medications. Review of Systems-Cardiology Review of Systems Constitutional: chills; No fever; malaise Eyes: No vision change Ears/Nose/Throat: No epistaxis, No recent hearing loss Respiratory: As described under HPI Cardiovascular: As described under HPI Gastrointestinal: As described under HPI Genitourinary: No dysuria, No hematuria Musculoskeletal: other (chronic back pain) Skin: other (wound to left foot) Psychiatric/Neurological: No anxiety, No depression, No seizure, No focal weakness, No syncope Hematologic: No bleeding abnormalities FTZ-[id number]-Tkznth Hx Patient Social History Smoking Status: Former Smoker Have you traveled recently?: No Alcohol Use?: No Pt feels they are or have been: No Tobacco type used: Cigarettes Past Medical History PMH As described under Assessment. Family Medical History Family Medical History: He reports his father had CHF. Allergies and Home Medications Allergies Coded Allergies: No Known Drug Allergies (Unverified , 03/26/22) Patient Home Medication List Home Medication List Reviewed: Yes Aspirin (Aspirin EC) 81 Mg Tablet., 81 MG PO HS, (Reported) Entered as Reported by: LORENZO QUINTANILLA on 03/26/221616 Last Action: Held Atorvastatin Calcium (Atorvastatin Calcium) 80 Mg Tablet, 40 MG PO HS, (Reported) Entered as Reported by: LORENZO QUINTANILLA on 03/26/221616 Last Action: Continued Carvedilol (Carvedilol) 12.5 Mg Tablet, 6.25 MG PO BID, (Reported) Entered as Reported by: LORENZO QUINTANILLA on 03/26/221616 Last Action: Held Cholecalciferol (Vitamin D3) (Vitamin D3) 25 Mcg (1000 Unit) Tablet, 25 MCG PO DAILY, (Reported) Entered as Reported by: LORENZO QUINTANILLA on 03/26/221616 Last Action: Held Clopidogrel Bisulfate (Clopidogrel) 75 Mg Tablet, 75 MG PO DAILY, (Reported) Entered as Reported by: LORENZO QUINTANILLA on 03/26/221616 Last Action: Continued Cyclobenzaprine HCl (Cyclobenzaprine HCl) 10 Mg Tablet, 5-10 MG PO BID PRN for MUSCLE SPASMS, (Reported) Entered as Reported by: LORENZO QUINTANILLA on 03/26/221616 Last Action: Held Empagliflozin (Jardiance) 25 Mg Tablet, 25 MG PO HS, (Reported) Entered as Reported by: LORENZO QUINTANILLA on 03/26/221616 Last Action: Held Gabapentin (Neurontin) 300 Mg Capsule, 300 MG PO BID, (Reported) Entered as Reported by: LORENZO QUINTANILLA on 03/26/221616 Last Action: Held Insulin Aspart (Novolog) 100 Unit/Ml Susp, 5-7 UNITS SC TID, (Reported) Entered as Reported by: LORENZO QUINTANILLA on 03/26/221616 Last Action: Held Insulin Glargine,Hum.rec.anlog (Lantus) 100 Unit/Ml Vial, 40 UNITS SC HS, (Reported) Entered as Reported by: LORENZO QUINTANILLA on 03/26/221616 Last Action: Converted Lisinopril (Lisinopril) 10 Mg Tablet, 5 MG PO DAILY, (Reported) Entered as Reported by: LORENZO QUINTANILLA on 03/26/221616 Last Action: Held Metformin HCl (Metformin HCl) 1,000 Mg Tablet, 1,000 MG PO BID WITH MEALS, (Reported) Entered as Reported by: LORENZO QUINTANILLA on 03/26/221616 Last Action: Held Mirtazapine (Mirtazapine) 15 Mg Tablet, 7.5 MG PO HS, (Reported) Entered as Reported by: LORENZO QUINTANILLA on 03/26/221616 Last Action: Converted Naproxen (Naproxen) 500 Mg Tablet, 500 MG PO BID PRN for PAIN-MILD (1-4), (Reported) Entered as Reported by: LORENZOMirela QUINTANILLA on 03/26/221616 Last Action: Held Physical Exam-Cardiology Physical Exam Vital Signs/I&O 03/26/22 03/26/22 03/26/22 03/26/22 08:38 12:05 12:30 12:35 Temp 35.9 36.1 Pulse 87 88 96 96 Resp 17 16 22 B/P (MAP) 99/59 (72) 106/56 94/59 (71) Pulse Ox 100 100 100 O2 Delivery Room Air Room Air Room Air 03/26/22 03/26/22 03/26/22 03/26/22 12:53 13:00 13:49 14:00 Temp 36.1 Pulse 96 96 97 Resp 17 20 B/P (MAP) 101/75 (84) 98/49 (65) Pulse Ox 100 100 90 O2 Delivery Room Air Room Air Room Air FiO2 21 03/26/22 03/26/22 03/26/22 15:15 15:42 16:00 Pulse 102 98 Resp 15 13 B/P (MAP) 108/74 (85) 95/67 (76) Pulse Ox 100 100 96 O2 Delivery Room Air Room Air Room Air Capillary Refill : Less Than 3 Seconds Constitutional: AAO x 3, well-developed, well-nourished HEENT: PERRL, hearing is well preserved, oral hygience is good Neck: No carotid bruit; carotid pulses are 2 + bilaterally Respiratory: No accessory muscle use, No respiratory distress; chest expansion is symmetric, other (diminished bases bilat) Cardiovascular: regular rate-rhythm; No JVD; S1 and S2 Gastrointestinal: No tender; soft, audible bowel sounds Extremities: no lower extremity edema bilateral Neurologic/Psychiatric: grossly intact (moves all extremities) Skin: pallor, other (dressing to left foot - not removed) Data Review Labs Laboratory Tests 03/26/22 08:50: White Blood Count 10.2, Red Blood Count 4.37, Hemoglobin 9.9L, Hematocrit 31L, Mean Corpuscular Volume 72L, Mean Corpuscular Hemoglobin 23L, Mean Corpuscular Hemoglobin Concent 32, Red Cell Distribution Width 15.9H, Platelet Count 389, Mean Platelet Volume 8.9L, Immature Granulocyte % (Auto) 1, Neutrophils (%) (Auto) 88H, Lymphocytes (%) (Auto) 5L, Monocytes (%) (Auto) 6, Eosinophils (%) (Auto) 0, Basophils (%) (Auto) 0, Neutrophils # (Auto) 9.0H, Lymphocytes # (Auto) 0.5L, Monocytes # (Auto) 0.6, Eosinophils # (Auto) 0.0, Basophils # (Auto) 0.0, Immature Granulocyte # (Auto) 0.1, Neutrophils % (Manual) 87, Lymphocytes % (Manual) 5, Monocytes % (Manual) 4, Basophils % (Manual) 1, Band Neutrophils 3, Nucleated Red Blood Cells 2, Platelet Estimate NORMAL, Polychromasia SLIGHT, Hypochromasia MODERATE, Poikilocytosis MODERATE, Microcytosis MODERATE, Macrocytosis SLIGHT, Finn Cells MODERATE, Elliptocytes SLIGHT, Prothrombin Time 14.0, INR Comment 1.0, Activated Partial Thromboplast Time 38H, D-Dimer 2.22H, Sodium Level 125*L, Potassium Level 5.8H, Chloride Level 91L, Carbon Dioxide Level 18L, Anion Gap 16H, Blood Urea Nitrogen 65H, Creatinine 1.47H, Estimat Glomerular Filtration Rate 53, BUN/Creatinine Ratio 44, Glucose Level 189H, Lactic Acid Level 3.07*H, Calcium Level 9.0, Corrected Calcium 9.2, Magnesium Level 1.9, Total Bilirubin 0.4, Aspartate Amino Transf (AST/SGOT) 55H, Alanine Aminotransferase (ALT/SGPT) 71H, Alkaline Phosphatase 121, Troponin I 0.86*H, Pro-B-Type Natriuretic Peptide 9208.0H, Total Protein 6.5, Albumin 3.8, Lipase 16 03/26/22 10:35: Influenza Type A (RT-PCR) Not Detected, Influenza Type B (RT-PCR) Not Detected, SARS-CoV-2 RNA (RT-PCR) Not Detected 03/26/22 10:52: Lactic Acid Level 2.88*H 03/26/22 13:10: Sodium Level 126L, Potassium Level 5.0, Chloride Level 97L, Carbon Dioxide Level 15L, Anion Gap 14, Blood Urea Nitrogen 62H, Creatinine 1.56H, Estimat Glomerular Filtration Rate 50, BUN/Creatinine Ratio 40, Glucose Level 196H, Lactic Acid Level 3.43*H, Calcium Level 8.3L, Troponin I 1.951*H, Erythrocyte Sedimentation Rate 16, C-Reactive Protein High Sensitivity 3.17H 03/26/22 15:20: Lactic Acid Level 3.74*H 03/26/22 16:46: A/P-Cardiology Assessment/Admission Diagnosis Elevated troponin - NSTEMI vs Type 2 TN d/t acute renal failure, sepsis and heart failure Decompensated CHF Sepsis - management per medical services Aute renal failure - likely acute on chronic Electrolyte abnormalities Elevated bilirubin level of undetermined etiology H/O CAD - TN with stents placed in 2000 and 2006 at [facility] H/O HTN HLD DM H/O gangrenous wound to left foot - follows with Dr. Gomez at [facility] for wound care Probable COPD H/O tobaccoism - quit 2 months ago Discussion and Recomendations Elevated troponin - NSTEMI (ACS) vs Type II TN secondary to CHF, sepsis - continue ASA and Lovenox - start BB when BP is adequate CHF - treat with diuretics Acute renal insufficiency - Continue IVF Sepsis - undetermined source - management per medical services Management of left foot wound per medical services Monitor lab closely Replace electrolytes as indicated Further recs will be based on his hospital course We would like to thank medical services for this consult CHRISTY ANTONIO MD FACP FAC CCDS Mar 26, 2022 16:56
[2022-03-26 17:02] LABS: CALCIUM 8.5 MG/DL (8.5-10.1); CREATININE SERUM 1.6 MG/DL (0.60-1.30); POTASSIUM 5.1 MMOL/L (3.6-5.0)
[2022-03-26] MEDS: DOCUSATE SODIUM 100 MG (COLACE) CAP PO SCH (20:36)
[2022-03-26] MEDS: inSUlin ASPART (NovoLOG) 1 UNIT/0.01 ML (CHARGE PER UNIT) SC SCH (21:15)
[2022-03-26] MEDS: MIRTAZAPINE 15 MG (REMERON) TAB PO SCH (21:16)
[2022-03-26] MEDS: HYPOCHLOROUS ACID/NaCl (VASHE) 250 ML IR PRN (21:17)
[2022-03-26] MEDS ORDERED: guaiFENesin/CODEINE (ROBITUSSIN AC) 10ML UDC PO PRN (22:45)
[2022-03-26] MEDS ORDERED: ENOXAPARIN 80 MG/0.8 ML (LOVENOX) SYR SC SCH (23:30)
[2022-03-27] VITALS (16 sets, daily range): BP systolic 82–119; BP diastolic 63–83
[2022-03-27] MEDS: NS IV 1000 ML 1,000 ML IV SCH ×2 (00:08→11:33)
[2022-03-27] MEDS: RT-ALBUTEROL/IPRATROPIUM 3 ML (DUONEB) VIAL INH SCH ×4 (03:44→22:04)
[2022-03-27 05:04] LABS: BASOPHILS # (AUTO) 0.1 10^3/uL (0.0-0.1); BASOPHILS % (AUTO) 1 % (0-10); EOSINOPHILS % (AUTO) 0 % (0-10); HEMATOCRIT 26 % (40-54); HEMOGLOBIN 8.4 g/dL (13.3-17.7); LYMPHOCYTES # (AUTO) 0.7 10^3/uL (1.0-4.0); LYMPHOCYTES % (AUTO) 8 % (12-44); MEAN CORPUSCULAR HEMOGLOBIN 23 pg (25-34); MEAN CORPUSCULAR HGB CONC 32 g/dL (32-36); MEAN CORPUSCULAR VOLUME 71 fL (80-99); MONOCYTES % (AUTO) 11 % (0-12); NEUTROPHILS # (AUTO) 6.8 10^3/uL (1.8-7.8); NEUTROPHILS % (AUTO) 80 % (42-75); PLATELET COUNT 361 10^3/uL (130-400); WHITE BLOOD COUNT 8.5 10^3/uL (4.3-11.0)
[2022-03-27 05:12] LABS: ALBUMIN 3.3 GM/DL (3.2-4.5); POTASSIUM 4.6 MMOL/L (3.6-5.0)
[2022-03-27 05:13] LABS: CALCIUM 8.3 MG/DL (8.5-10.1)
[2022-03-27 05:14] LABS: TOTAL PROTEIN 5.6 GM/DL (6.4-8.2)
[2022-03-27] MEDS: KCL 20 MEQ TAB (K-DUR) PO SCH (05:15)
[2022-03-27] MEDS: POTASSIUM CL 10MEQ/50ML IVPB 50 ML IV SCH (05:15)
[2022-03-27 05:16] LABS: BILIRUBIN,TOTAL 0.2 MG/DL (0.1-1.0)
[2022-03-27 05:18] LABS: CREATININE SERUM 1.19 MG/DL (0.60-1.30)
[2022-03-27] MEDS: inSUlin ASPART (NovoLOG) 1 UNIT/0.01 ML (CHARGE PER UNIT) SC SCH ×4 (05:21→20:21)
[2022-03-27 05:22] LABS: MAGNESIUM 1.9 MG/DL (1.6-2.4)
[2022-03-27] MEDS: MAGNESIUM 1 GM/100 ML IVPB 100 ML IV SCH (05:23)
--- NOTE | 2022-03-27 08:06 | Tele-ICU Progress Note ---
Subjective Date Seen by a Provider: Mar 27, 2022 Time Seen by a Provider: 08:05 Subjective/Events-last exam 62 yo M Sepsis Event Evaluation Height, Weight, BMI Height: '" Weight: lbs. oz. kg; 23.22 BMI Method: Focused Exam Lactate Level 03/26/22 17:26: Lactic Acid Level 3.05*H 03/26/22 19:38: Lactic Acid Level 2.11*H 03/26/22 21:43: Lactic Acid Level 1.37 Time of Focused Exam: 10:10 Exam Exam Patient acknowledged, consented, and participated in this virtual visit which was conducted using real time audio/video Vital Signs Date Time Temp Pulse Resp B/P (MAP) Pulse Ox O2 Delivery O2 Flow Rate FiO2 03/27/22 07:23 36.1 03/27/22 06:58 97 03/27/22 06:00 93 96/83 (87) 99 Room Air 03/27/22 05:00 99 106/73 (84) 96 Room Air 03/27/22 04:00 94 97/70 (79) 100 Room Air 03/27/22 03:45 99 Room Air 03/27/22 03:12 36.7 97 18 103/77 (86) 98 Room Air 03/27/22 03:00 102 103/77 (86) 99 Room Air 03/27/22 02:00 98 82/63 (69) 98 Room Air 03/27/22 01:00 97 03/27/22 01:00 97 98/69 (79) 96 Room Air 03/27/22 00:01 98 95/64 (74) 100 Room Air 03/26/22 23:24 36.3 101 18 94/67 (76) 98 Room Air 03/26/22 23:00 102 21 94/67 (76) 99 Room Air 03/26/22 22:19 98 Room Air 03/26/22 22:14 101 34 96/65 (75) 94 Room Air 03/26/22 21:00 97 15 99/64 (76) 95 Room Air 03/26/22 20:00 97 16 104/67 (79) 96 Room Air 03/26/22 20:00 96 Room Air 03/26/22 19:21 36.1 98 18 97/74 (82) 98 Room Air 03/26/22 19:00 100 03/26/22 18:00 98 10 114/95 (101) 96 Room Air 03/26/22 17:38 36.1 98 20 108/73 (85) 98 Room Air 03/26/22 17:00 101 17 88/59 (69) 94 Room Air 03/26/22 16:00 98 13 95/67 (76) 96 Room Air 03/26/22 15:42 100 Room Air 03/26/22 15:15 102 15 108/74 (85) 100 Room Air 03/26/22 14:00 97 20 98/49 (65) 90 Room Air 03/26/22 13:49 36.1 96 100 21 03/26/22 13:30 96 10 100 Room Air 03/26/22 13:00 96 17 101/75 (84) 100 Room Air 03/26/22 12:53 Room Air 03/26/22 12:35 96 03/26/22 12:30 36.1 96 22 94/59 (71) 100 Room Air 03/26/22 12:05 88 16 106/56 100 Room Air 03/26/22 08:38 35.9 87 17 99/59 (72) 100 Room Air I & O 03/27/22 07:00 Intake Total 2275 ml Output Total 1200 ml Balance 1075 ml Height & Weight Height: '" Weight: lbs. oz. kg; 23.22 BMI Method: General Appearance: No Apparent Distress, WD/WN HEENT: PERRL/EOMI, Pharynx Normal Neck: Normal Inspection, Supple Respiratory: Lungs Clear, Normal Breath Sounds, No Respiratory Distress Cardiovascular: Regular Rate, Rhythm, No Murmur Capillary Refill: Less Than 3 Seconds Peripheral Pulses: 2+ Carotid (R), 2+ Carotid (L), 2+ Radial Pulses (R), 2+ Radial Pulses (L) Gastrointestinal: normal bowel sounds, non tender, soft, no pulsatile mass Extremity: Normal Inspection, No Pedal Edema Neurologic/Psychiatric: Alert, Normal Mood/Affect Skin: Normal Color, Warm/Dry Results Lab Laboratory Tests 03/26/22 08:50 03/26/22 13:10 03/27/22 04:32 03/27/22 04:39 Assessment/Plan Assessment/Plan ID *PNAsuspected ( RLL , CAP) ( NEG covid and influenza) - started on Ceftriaxone and Azithromycin *Chronic wound to his left foot - wound service to follow non-STEMI, - full dose lovenox KELVIN - hypoperfusion - follow Hyponatremia ( baseline unknown , AAO , no Sz0 - received lasix and IVF in ER - will not order urine labs , repeat Na Elv lactate - received IVF and lasix in ER - related to hypoperfusion - IVF given in ER - follow elevated D-dimer - CTA chest neg for PE Right pleural effusion - small , probaly parapneumonic Anemia - follow , no sign of bleeding PVD Lines : periph , (Central Line Necessity Reviewed) Stokes: OG: Nutrition: Analgesia: Anxiety/ delirium ENRIQUE TAVARES MD Mar 27, 2022 08:06
--- NOTE | 2022-03-27 08:13 | Tele-ICU Progress Note ---
Subjective Date Seen by a Provider: Mar 27, 2022 Time Seen by a Provider: 08:08 Subjective/Events-last exam 62 yo M with CAP, RLL, on IV Rocephin and Azithromycin, patchy infiltrate with effusion right base, CTA did not show a pulmonary embolus. Covid and flu serology negative Also chronic wound left foot, wound service is following, Sepsis Event Evaluation Height, Weight, BMI Height: '" Weight: lbs. oz. kg; 23.22 BMI Method: Focused Exam Lactate Level 03/26/22 17:26: Lactic Acid Level 3.05*H 03/26/22 19:38: Lactic Acid Level 2.11*H 03/26/22 21:43: Lactic Acid Level 1.37 Time of Focused Exam: 10:10 Exam Exam Patient acknowledged, consented, and participated in this virtual visit which was conducted using real time audio/video Vital Signs Date Time Temp Pulse Resp B/P (MAP) Pulse Ox O2 Delivery O2 Flow Rate FiO2 03/27/22 07:23 36.1 03/27/22 06:58 97 03/27/22 06:00 93 96/83 (87) 99 Room Air 03/27/22 05:00 99 106/73 (84) 96 Room Air 03/27/22 04:00 94 97/70 (79) 100 Room Air 03/27/22 03:45 99 Room Air 03/27/22 03:12 36.7 97 18 103/77 (86) 98 Room Air 03/27/22 03:00 102 103/77 (86) 99 Room Air 03/27/22 02:00 98 82/63 (69) 98 Room Air 03/27/22 01:00 97 03/27/22 01:00 97 98/69 (79) 96 Room Air 03/27/22 00:01 98 95/64 (74) 100 Room Air 03/26/22 23:24 36.3 101 18 94/67 (76) 98 Room Air 03/26/22 23:00 102 21 94/67 (76) 99 Room Air 03/26/22 22:19 98 Room Air 03/26/22 22:14 101 34 96/65 (75) 94 Room Air 03/26/22 21:00 97 15 99/64 (76) 95 Room Air 03/26/22 20:00 97 16 104/67 (79) 96 Room Air 03/26/22 20:00 96 Room Air 03/26/22 19:21 36.1 98 18 97/74 (82) 98 Room Air 03/26/22 19:00 100 03/26/22 18:00 98 10 114/95 (101) 96 Room Air 03/26/22 17:38 36.1 98 20 108/73 (85) 98 Room Air 03/26/22 17:00 101 17 88/59 (69) 94 Room Air 03/26/22 16:00 98 13 95/67 (76) 96 Room Air 03/26/22 15:42 100 Room Air 03/26/22 15:15 102 15 108/74 (85) 100 Room Air 03/26/22 14:00 97 20 98/49 (65) 90 Room Air 03/26/22 13:49 36.1 96 100 21 03/26/22 13:30 96 10 100 Room Air 03/26/22 13:00 96 17 101/75 (84) 100 Room Air 03/26/22 12:53 Room Air 03/26/22 12:35 96 03/26/22 12:30 36.1 96 22 94/59 (71) 100 Room Air 03/26/22 12:05 88 16 106/56 100 Room Air 03/26/22 08:38 35.9 87 17 99/59 (72) 100 Room Air I & O 03/27/22 07:00 Intake Total 2275 ml Output Total 1200 ml Balance 1075 ml Height & Weight Height: '" Weight: lbs. oz. kg; 23.22 BMI Method: General Appearance: No Apparent Distress, WD/WN HEENT: PERRL/EOMI, Pharynx Normal Neck: Normal Inspection, Supple Respiratory: Lungs Clear, Normal Breath Sounds, No Respiratory Distress Cardiovascular: Regular Rate, Rhythm, No Murmur Capillary Refill: Less Than 3 Seconds Peripheral Pulses: 2+ Carotid (R), 2+ Carotid (L), 2+ Radial Pulses (R), 2+ Radial Pulses (L) Gastrointestinal: normal bowel sounds, non tender, soft, no pulsatile mass Extremity: Normal Inspection, No Pedal Edema Neurologic/Psychiatric: Alert, Normal Mood/Affect Skin: Normal Color, Warm/Dry Results Lab Laboratory Tests 03/26/22 08:50 03/26/22 13:10 03/27/22 04:32 03/27/22 04:39 Assessment/Plan Assessment/Plan CAP, will continue present abx, left foot wound, culture showing gnr, x ray shows possilbe minimal osteomyelitis left metatarsal, would care to follow Critical Care: Critically Ill Patient ENRIQUE TAVARES MD Mar 27, 2022 08:13
--- NOTE | 2022-03-27 08:25 | Diagnostic Imaging Report ---
INDICATION: Pleural effusion, ICU care management. TECHNIQUE: Single view chest 4:13 AM. CORRELATION STUDY: 03/26/2022 FINDINGS: Heart size stable. Vasculature appears slightly increased with prominent perihilar and interstitial markings. Blunting the costophrenic angles likely trace pleural effusion. No consolidating infiltrate. IMPRESSION: 1. Vasculature and interstitial markings do appear slightly more prominent favors a component of mild edema. Likely trace pleural effusions versus pleural thickening. Dictated by: Dictated on workstation # [id number]
--- NOTE | 2022-03-27 08:49 | Progress Note - Cardiology ---
Cardiology SOAP Progress Note Subjective: Lying in bed No c/o CP, palpitations, abd pain or nausea at this time Feels SOB has improved Reports he feels hungry and would like to eat Objective: I&O/Vital Signs 03/27/22 03/27/22 03/27/22 03/27/22 01:00 01:00 02:00 03:00 Pulse 97 97 98 102 B/P (MAP) 98/69 (79) 82/63 (69) 103/77 (86) Pulse Ox 96 98 99 O2 Delivery Room Air Room Air Room Air 03/27/22 03/27/22 03/27/22 03/27/22 03:12 03:45 04:00 05:00 Temp 36.7 Pulse 97 94 99 Resp 18 B/P (MAP) 103/77 (86) 97/70 (79) 106/73 (84) Pulse Ox 98 99 100 96 O2 Delivery Room Air Room Air Room Air Room Air 03/27/22 03/27/22 03/27/22 03/27/22 06:00 06:58 07:00 07:23 Temp 36.1 Pulse 93 97 96 Resp 12 B/P (MAP) 96/83 (87) 115/77 (90) Pulse Ox 99 98 O2 Delivery Room Air Room Air 03/27/22 03/27/22 08:00 09:35 Pulse 97 Resp 14 B/P (MAP) 119/81 (94) Pulse Ox 99 100 O2 Delivery Room Air Room Air 03/27/22 00:00 Intake Total 150 ml Output Total 1000 ml Balance -850 ml Constitutional: AAO x 3, well-developed, well-nourished Respiratory: No accessory muscle use, No respiratory distress; chest expansion is symmetric, rhonchi (scattered), other (diminished bases bilat) Cardiovascular: regular rate-rhythm; No JVD; S1 and S2 Gastrointestional: No tender; soft, audible bowel sounds Extremities: no lower extremity edema bilateral Neurologic/Psychiatric: grossly intact (moves all extremities) Skin: pallor, other (dressing to left foot - not removed) Results/Procedures: Labs Laboratory Tests 03/26/22 13:10: Erythrocyte Sedimentation Rate 16, Sodium Level 126L, Potassium Level 5.1H, Chloride Level 97L, Carbon Dioxide Level 14L, Anion Gap 15H, Blood Urea Nitrogen 64H, Creatinine 1.60H, Estimat Glomerular Filtration Rate 48, BUN/Creatinine Ratio 40, Glucose Level 195H, Lactic Acid Level 3.43*H, Calcium Level 8.5, Troponin I 1.951*H, C-Reactive Protein High Sensitivity 3.17H, Prealbumin 16.9L, Procalcitonin 0.07 03/26/22 15:20: Lactic Acid Level 3.74*H 03/26/22 16:46: Iron Level 15L, Total Iron Binding Capacity 291, Unsaturated Iron Binding Capacity 276, Transferrin % Saturation 5L, Ferritin 42.1 03/26/22 17:26: Lactic Acid Level 3.05*H, Troponin I 1.756*H 03/26/22 17:34: Glucometer 204H 03/26/22 19:38: Lactic Acid Level 2.11*H 03/26/22 21:07: Glucometer 228H 03/26/22 21:43: Lactic Acid Level 1.37 03/27/22 04:32: White Blood Count 8.5, Red Blood Count 3.69L, Hemoglobin 8.4L, Hematocrit 26L, Mean Corpuscular Volume 71L, Mean Corpuscular Hemoglobin 23L, Mean Corpuscular Hemoglobin Concent 32, Red Cell Distribution Width 15.9H, Platelet Count 361, Mean Platelet Volume 9.0, Immature Granulocyte % (Auto) 1, Neutrophils (%) (Auto) 80H, Lymphocytes (%) (Auto) 8L, Monocytes (%) (Auto) 11, Eosinophils (%) (Auto) 0, Basophils (%) (Auto) 1, Neutrophils # (Auto) 6.8, Lymphocytes # (Auto) 0.7L, Monocytes # (Auto) 1.0, Eosinophils # (Auto) 0.0, Basophils # (Auto) 0.1, Immature Granulocyte # (Auto) 0.0 03/27/22 04:39: Sodium Level 133L, Potassium Level 4.6, Chloride Level 103, Carbon Dioxide Level 19L, Anion Gap 11, Blood Urea Nitrogen 55H, Creatinine 1.19, Estimat Glomerular Filtration Rate 69, BUN/Creatinine Ratio 46, Glucose Level 91, Calcium Level 8.3L, Corrected Calcium 8.9, Magnesium Level 1.9, Total Bilirubin 0.2, Aspartate Amino Transf (AST/SGOT) 52H, Alanine Aminotransferase (ALT/SGPT) 88H, Alkaline Phosphatase 96, Total Protein 5.6L, Albumin 3.3, Procalcitonin 0.07 03/27/22 05:18: Glucometer 71 03/27/22 06:17: Glucometer 81 03/27/22 11:26: Glucometer 151H Microbiology 03/26/22 Gram Stain, Resulted Pending 03/26/22 Wound Culture - Preliminary, Resulted Gram Negative Lul A/P: Assessment: Elevated troponin - NSTEMI vs Type 2 ID d/t acute renal failure, sepsis and heart failure - no c/o CP Decompensated CHF - clinically improving Sepsis - management per medical services KELVIN - likely d/t sepsis and hypotension - improved today with IVF hydration Electrolyte abnormalities - resolved Elevated liver enzymes of undetermined etiology - possibly secondary to hepato-biliary congestion H/O CAD - ID with stents placed in 2000 and 2006 at [facility] H/O HTN - currently with somewhat low BP - albeit asymptomatic Anemia - undetermined etiology - management per medical services HLD DM H/O gangrenous wound to left foot - follows with Dr. Gomez at [facility] for wound care - management per medical services Probable COPD H/O tobaccoism - quit 2 months ago Plan: Elevated troponin - NSTEMI (ACS) vs Type II ID secondary to CHF, sepsis - continue ASA and Plavix - start low dose BB adjust as tolerated - change Lovenox to DVT dosing CHF - treat with diuretics - echocardiogram pending KELVIN - improved Sepsis - undetermined source - management per medical services Anemia of undetermined etiology - management per medical services Management of left foot wound per medical services Monitor lab closely Replace electrolytes as indicated WARD ENGLISH Mar 27, 2022 08:49
[2022-03-27] MEDS: FUROSEMIDE 40 MG/4 ML INJ (LASIX) IVP SCH (08:51)
[2022-03-27] MEDS: DOCUSATE SODIUM 100 MG (COLACE) CAP PO SCH ×2 (08:51→20:21)
[2022-03-27] MEDS: ASPIRIN 81 MG CHEW (CHILDREN'S ASA) PO SCH (08:51)
[2022-03-27] MEDS: CLOPIDOGREL 75 MG (PLAVIX) TABLET PO SCH (08:52)
[2022-03-27] MEDS ORDERED: meTOprolol TARTRATE 25 MG (LOPRESSOR) TABLET PO SCH (09:00)
[2022-03-27] MEDS: ENOXAPARIN 40 MG/0.4 ML (LOVENOX) SYR SQ SCH (09:52)
--- NOTE | 2022-03-27 12:19 | Progress Note - Cardiology ---
Cardiology SOAP Progress Note Subjective: Improvement of shortness of breath No cp or palp or syncope Gen weakness and malaise No n/v/d No focal weakness Objective: I&O/Vital Signs 03/27/22 03/27/22 03/27/22 03/27/22 01:00 01:00 02:00 03:00 Pulse 97 97 98 102 B/P (MAP) 98/69 (79) 82/63 (69) 103/77 (86) Pulse Ox 96 98 99 O2 Delivery Room Air Room Air Room Air 03/27/22 03/27/22 03/27/22 03/27/22 03:12 03:45 04:00 05:00 Temp 36.7 Pulse 97 94 99 Resp 18 B/P (MAP) 103/77 (86) 97/70 (79) 106/73 (84) Pulse Ox 98 99 100 96 O2 Delivery Room Air Room Air Room Air Room Air 03/27/22 03/27/22 03/27/22 03/27/22 06:00 06:58 07:00 07:23 Temp 36.1 Pulse 93 97 96 Resp 12 B/P (MAP) 96/83 (87) 115/77 (90) Pulse Ox 99 98 O2 Delivery Room Air Room Air 03/27/22 03/27/22 08:00 09:35 Pulse 97 Resp 14 B/P (MAP) 119/81 (94) Pulse Ox 99 100 O2 Delivery Room Air Room Air 03/27/22 00:00 Intake Total 150 ml Output Total 1000 ml Balance -850 ml Constitutional: AAO x 3, well-developed, well-nourished Respiratory: No accessory muscle use, No respiratory distress; chest expansion is symmetric, rhonchi (scattered), other (diminished bases bilat) Cardiovascular: regular rate-rhythm; No JVD; S1 and S2 Gastrointestional: No tender; soft, audible bowel sounds Extremities: no lower extremity edema bilateral Neurologic/Psychiatric: grossly intact (moves all extremities) Skin: pallor, other (dressing to left foot - not removed) Results/Procedures: Labs Laboratory Tests 03/26/22 13:10: Erythrocyte Sedimentation Rate 16, Sodium Level 126L, Potassium Level 5.1H, Chloride Level 97L, Carbon Dioxide Level 14L, Anion Gap 15H, Blood Urea Nitrogen 64H, Creatinine 1.60H, Estimat Glomerular Filtration Rate 48, BUN/Creatinine Ratio 40, Glucose Level 195H, Lactic Acid Level 3.43*H, Calcium Level 8.5, Troponin I 1.951*H, C-Reactive Protein High Sensitivity 3.17H, Prealbumin 16.9L, Procalcitonin 0.07 03/26/22 15:20: Lactic Acid Level 3.74*H 03/26/22 16:46: Iron Level 15L, Total Iron Binding Capacity 291, Unsaturated Iron Binding Capacity 276, Transferrin % Saturation 5L, Ferritin 42.1 03/26/22 17:26: Lactic Acid Level 3.05*H, Troponin I 1.756*H 03/26/22 17:34: Glucometer 204H 03/26/22 19:38: Lactic Acid Level 2.11*H 03/26/22 21:07: Glucometer 228H 03/26/22 21:43: Lactic Acid Level 1.37 03/27/22 04:32: White Blood Count 8.5, Red Blood Count 3.69L, Hemoglobin 8.4L, Hematocrit 26L, Mean Corpuscular Volume 71L, Mean Corpuscular Hemoglobin 23L, Mean Corpuscular Hemoglobin Concent 32, Red Cell Distribution Width 15.9H, Platelet Count 361, Mean Platelet Volume 9.0, Immature Granulocyte % (Auto) 1, Neutrophils (%) (Auto) 80H, Lymphocytes (%) (Auto) 8L, Monocytes (%) (Auto) 11, Eosinophils (%) (Auto) 0, Basophils (%) (Auto) 1, Neutrophils # (Auto) 6.8, Lymphocytes # (Auto) 0.7L, Monocytes # (Auto) 1.0, Eosinophils # (Auto) 0.0, Basophils # (Auto) 0.1, Immature Granulocyte # (Auto) 0.0 03/27/22 04:39: Sodium Level 133L, Potassium Level 4.6, Chloride Level 103, Carbon Dioxide Level 19L, Anion Gap 11, Blood Urea Nitrogen 55H, Creatinine 1.19, Estimat Glomerular Filtration Rate 69, BUN/Creatinine Ratio 46, Glucose Level 91, Calcium Level 8.3L, Corrected Calcium 8.9, Magnesium Level 1.9, Total Bilirubin 0.2, Aspartate Amino Transf (AST/SGOT) 52H, Alanine Aminotransferase (ALT/SGPT) 88H, Alkaline Phosphatase 96, Total Protein 5.6L, Albumin 3.3, Procalcitonin 0.07 03/27/22 05:18: Glucometer 71 03/27/22 06:17: Glucometer 81 03/27/22 11:26: Glucometer 151H Microbiology 03/26/22 Gram Stain, Resulted Pending 03/26/22 Wound Culture - Preliminary, Resulted Gram Negative Lul Laboratory Tests 03/26/22 08:50 03/26/22 13:10 03/27/22 04:32 03/27/22 04:39 A/P: Assessment: Elevated troponin - NSTEMI vs Type 2 HI d/t acute renal failure, sepsis and heart failure - no c/o CP Decompensated CHF - clinically improving Sepsis - management per medical services KELVIN - likely d/t sepsis and hypotension - improved today with IVF hydration Electrolyte abnormalities - resolved Elevated liver enzymes of undetermined etiology - possibly secondary to hepato-biliary congestion H/O CAD - HI with stents placed in 2000 and 2006 at [facility] H/O HTN - currently with somewhat low BP - albeit asymptomatic Anemia - undetermined etiology - management per medical services HLD DM H/O gangrenous wound to left foot - follows with Dr. Gomez at [facility] for wound care - management per medical services Probable COPD H/O tobaccoism - quit 2 months ago Plan: Elevated troponin - NSTEMI (ACS) vs Type II HI secondary to CHF/sepsis - continue ASA and Plavix - start low dose BB adjust as tolerated - change Lovenox to DVT dosing CHF - treat with diuretics - echocardiogram pending KELVIN - improved Sepsis - undetermined source - management per medical services Anemia of undetermined etiology - management per medical services Management of left foot wound per Medical services Monitor lab closely Replace electrolytes as indicated CHRISTY ANTONIO MD FACP FAC CCDS Mar 27, 2022 12:19
--- NOTE | 2022-03-27 15:09 | Progress Note - Hospitalist ---
Subjective HPI/CC On Admission Date Seen by Provider: Mar 27, 2022 Time Seen by Provider: 11:00 Kip Gilman is a 62 year old male with PMH HTN, T2DM, HLD, CAD, PAD, former smoker, who presented with shortness of breath. He reports having symptoms for about 4 days. He also had a cough. He reports chest pain with deep breaths. He denies fevers and chills. He denies abdominal pain. He denies nausea and vomiting. He denies diarrhea. He has a chronic foot ulcer and follows with wound care. Subjective/Events-last exam He is feeling better. He is still short of breath. He denies chest pain. Focused Exam Lactate Level 03/26/22 17:26: Lactic Acid Level 3.05*H 03/26/22 19:38: Lactic Acid Level 2.11*H 03/26/22 21:43: Lactic Acid Level 1.37 Time of Focused Exam: 10:10 Objective Exam Vital Signs Vital Signs Date Time Temp Pulse Resp B/P (MAP) Pulse Ox O2 Delivery O2 Flow Rate FiO2 03/27/22 14:38 98 Room Air 03/27/22 13:23 100 03/27/22 12:00 14 109/71 (84) 03/27/22 07:23 36.1 03/26/22 13:49 21 Capillary Refill : Less Than 3 Seconds General Appearance: No Apparent Distress, WD/WN Respiratory: Lungs Clear, No Respiratory Distress Cardiovascular: Regular Rate, Rhythm, No Murmur Gastrointestinal: Normal Bowel Sounds, Soft Extremity: Normal Inspection, No Pedal Edema, Other (foot bandaged) Neurologic/Psychiatric: Alert, Normal Mood/Affect Results/Procedures Lab Laboratory Tests 03/27/22 04:32 03/27/22 04:39 Patient resulted labs reviewed. Imaging: Reviewed Imaging Report Assessment/Plan Assessment and Plan Assess & Plan/Chief Complaint NSTEMI CAD CHF HLD Troponin elevated, trended up Cardiology following ASA Plavix Echo completed yesterday, report pending PAD Not septic Chronic foot wound Wound care following Case discussed with Dr. Leonel WILLMAS with possible early osteomyelitis ESR normal, CRP minimally elevated Wound culture with probable Pseudomonas Begin Levaquin Will likely need MRI and/or bone biopsy outpatient Will likely need PAD evaluation outpatient Iron deficiency anemia Infed infusion Will likely need colonoscopy outpatient T2DM Levemir, decreased dose Sliding scale insulin HTN Hold antihypertensives due to low blood pressure DVT prophylaxis: Lovenox Lactic acidosis, resolved KELVIN, resolved Hyponatremia, resolved High anion gap metabolic acidosis, resolved Hyperkalemia, resolved Critical Care Critically Ill Patient Diagnosis/Problems Diagnosis/Problems (1) Non-ST elevation CA (NSTEMI) Status: Acute (2) Congestive heart failure Status: Acute Qualifiers: Heart failure type: unspecified Heart failure chronicity: unspecified Qualified Codes: I50.9 - Heart failure, unspecified (3) Lactic acidosis Status: Resolved Resolution Date/Time: 03/27/22 @ 15:09 (4) KELVIN (acute kidney injury) Status: Resolved Resolution Date/Time: 03/27/22 @ 15:09 (5) HTN (hypertension) Status: Chronic (6) HLD (hyperlipidemia) Status: Chronic (7) CAD (coronary artery disease) Status: Chronic (8) PAD (peripheral artery disease) Status: Chronic (9) Chronic ulcer of left foot due to diabetes mellitus Status: Chronic (10) T2DM (type 2 diabetes mellitus) Status: Chronic Qualifiers: Diabetes mellitus terminal makeup operator insulin use: with terminal makeup operator use Diabetes mellitus complication status: with hyperglycemia Qualified Codes: E11.65 - Type 2 diabetes mellitus with hyperglycemia; Z79.4 - termite inspector (current) use of insulin BAN WEEKS MD Mar 27, 2022 15:09
[2022-03-27] MEDS ORDERED: EPINEPHrine INJECTION 1 MG/ML AMP IM PRN (15:15)
[2022-03-27] MEDS ORDERED: diphenhydrAMINE 50 MG/ML INJ (BENADRYL) IV PRN (15:15)
[2022-03-27] MEDS ORDERED: IRON DEXTRAN INJECTION 25 MG in NS (IVPB) 5.75 ML IV NR (15:15)
[2022-03-27] MEDS ORDERED: HYDROCORTISONE 100 MG/2 ML (Solu-CORTEF) VIAL IV PRN (15:15)
[2022-03-27] MEDS ORDERED: RT-ALBUTEROL SULF 2.5 MG/3 ML PRE-MIX VIAL IH PRN (15:15)
[2022-03-27] MEDS ORDERED: IRON DEXTRAN INJECTION 1,000 MG in NS (IVPB) 250 ML IV NR (15:30)
[2022-03-27] MEDS: NS IV 500 ML 500 ML IV SCH (16:15)
[2022-03-27] MEDS: MIRTAZAPINE 15 MG (REMERON) TAB PO SCH (20:21)
[2022-03-28] MEDS: RT-ALBUTEROL/IPRATROPIUM 3 ML (DUONEB) VIAL INH SCH ×3 (02:44→15:03)
[2022-03-28 03:16] LABS: BASOPHILS % (AUTO) 0 % (0-10); EOSINOPHILS % (AUTO) 0 % (0-10); HEMATOCRIT 26 % (40-54); HEMOGLOBIN 8.3 g/dL (13.3-17.7); LYMPHOCYTES # (AUTO) 0.4 10^3/uL (1.0-4.0); LYMPHOCYTES % (AUTO) 5 % (12-44); MEAN CORPUSCULAR HEMOGLOBIN 23 pg (25-34); MEAN CORPUSCULAR HGB CONC 32 g/dL (32-36); MEAN CORPUSCULAR VOLUME 71 fL (80-99); MEAN PLATELET VOLUME 8.7 fL (9.0-12.2); MONOCYTES # (AUTO) 0.9 10^3/uL (0.0-1.0); MONOCYTES % (AUTO) 10 % (0-12); NEUTROPHILS # (AUTO) 7.5 10^3/uL (1.8-7.8); NEUTROPHILS % (AUTO) 85 % (42-75); PLATELET COUNT 338 10^3/uL (130-400); WHITE BLOOD COUNT 8.9 10^3/uL (4.3-11.0)
[2022-03-28 03:30] VITALS: BP 106/76
[2022-03-28 03:39] LABS: ALBUMIN 3.4 GM/DL (3.2-4.5); POTASSIUM 4.2 MMOL/L (3.6-5.0)
[2022-03-28 03:41] LABS: CALCIUM 8.6 MG/DL (8.5-10.1)
[2022-03-28 03:42] LABS: TOTAL PROTEIN 5.9 GM/DL (6.4-8.2)
[2022-03-28 03:44] LABS: BILIRUBIN,TOTAL 0.3 MG/DL (0.1-1.0)
[2022-03-28 03:45] LABS: CREATININE SERUM 0.95 MG/DL (0.60-1.30)
[2022-03-28] MEDS: POTASSIUM CL 10MEQ/50ML IVPB 50 ML IV SCH (03:50)
[2022-03-28] MEDS: KCL 20 MEQ TAB (K-DUR) PO SCH (03:51)
[2022-03-28] MEDS: MAGNESIUM 1 GM/100 ML IVPB 100 ML IV SCH (03:51)
[2022-03-28] MEDS: inSUlin ASPART (NovoLOG) 1 UNIT/0.01 ML (CHARGE PER UNIT) SC SCH ×4 (03:51→20:28)
[2022-03-28] MEDS: ASPIRIN 81 MG CHEW (CHILDREN'S ASA) PO SCH (07:44)
[2022-03-28] MEDS: FUROSEMIDE 40 MG/4 ML INJ (LASIX) IVP SCH (07:45)
[2022-03-28] MEDS: CLOPIDOGREL 75 MG (PLAVIX) TABLET PO SCH (07:45)
[2022-03-28] MEDS: DOCUSATE SODIUM 100 MG (COLACE) CAP PO SCH ×2 (07:45→20:29)
[2022-03-28] MEDS: ENOXAPARIN 40 MG/0.4 ML (LOVENOX) SYR SQ SCH (07:45)
[2022-03-28 08:00] VITALS: BP 126/88
[2022-03-28] MEDS: NS IV 500 ML 500 ML IV SCH (08:09)
--- NOTE | 2022-03-28 09:39 | Progress Note - Cardiology ---
Cardiology SOAP Progress Note Subjective: Lying in bed States SOB is better No c/o CP, palpitations No c/o n/v/d Objective: I&O/Vital Signs 03/28/22 03/28/22 03/28/22 03/28/22 07:00 08:00 08:00 10:15 Temp 36.4 Pulse 102 101 Resp 18 B/P (MAP) 126/88 (101) Pulse Ox 100 98 100 O2 Delivery Nasal Cannula Room Air Room Air O2 Flow Rate 2.00 03/28/22 03/28/22 03/28/22 03/28/22 12:00 12:37 15:03 16:00 Temp 37.3 37.3 36.6 Pulse 98 96 96 98 Resp 16 16 B/P (MAP) 112/79 (90) 105/69 (81) Pulse Ox 96 96 95 O2 Delivery Room Air Room Air 03/28/22 00:00 Intake Total 2576.25 ml Output Total 1400 ml Balance 1176.25 ml Constitutional: AAO x 3, well-developed, well-nourished Respiratory: No accessory muscle use, No respiratory distress; chest expansion is symmetric, rhonchi (scattered), other (diminished bases bilat) Cardiovascular: regular rate-rhythm; No JVD; S1 and S2 Gastrointestional: No tender; soft, audible bowel sounds Extremities: no lower extremity edema bilateral Neurologic/Psychiatric: grossly intact (moves all extremities) Skin: pallor, other (dressing to left foot - not removed) Results/Procedures: Labs Laboratory Tests 03/27/22 20:19: Glucometer 142H 03/28/22 03:07: White Blood Count 8.9, Red Blood Count 3.67L, Hemoglobin 8.3L, Hematocrit 26L, Mean Corpuscular Volume 71L, Mean Corpuscular Hemoglobin 23L, Mean Corpuscular Hemoglobin Concent 32, Red Cell Distribution Width 15.9H, Platelet Count 338, Mean Platelet Volume 8.7L, Immature Granulocyte % (Auto) 0, Neutrophils (%) (Auto) 85H, Lymphocytes (%) (Auto) 5L, Monocytes (%) (Auto) 10, Eosinophils (%) (Auto) 0, Basophils (%) (Auto) 0, Neutrophils # (Auto) 7.5, Lymphocytes # (Auto) 0.4L, Monocytes # (Auto) 0.9, Eosinophils # (Auto) 0.0, Basophils # (Auto) 0.0, Immature Granulocyte # (Auto) 0.0, Sodium Level 134L, Potassium Level 4.2, Chloride Level 102, Carbon Dioxide Level 21, Anion Gap 11, Blood Urea Nitrogen 41H, Creatinine 0.95, Estimat Glomerular Filtration Rate 90, BUN/Creatinine Ratio 43, Glucose Level 85, Calcium Level 8.6, Corrected Calcium 9.1, Magnesium Level 1.9, Total Bilirubin 0.3, Aspartate Amino Transf (AST/SGOT) 43H, Alanine Aminotransferase (ALT/SGPT) 91H, Alkaline Phosphatase 104, Total Protein 5.9L, Albumin 3.4 03/28/22 10:41: Glucometer 125H 03/28/22 13:10: Glucometer 111H 03/28/22 15:18: Glucometer 214H Microbiology 03/26/22 Gram Stain - Final, Resulted 03/26/22 Wound Culture - Preliminary, Resulted Mixed Bacterial Jewell Pseudomonas aeruginosa Pseudomonas aeruginosa#2 Susceptibility To Follow 03/26/22 Blood Culture - Preliminary, Resulted No growth A/P: Assessment: Elevated troponin - NSTEMI vs Type 2 DC d/t acute renal failure, sepsis and heart failure - no c/o CP Decompensated systolic CHF - clinically improving - Echocardiogram of 03-26-22 showed LVEF 25-30% ICM Sepsis - management per medical services KELVIN - likely d/t sepsis and hypotension - improved with IVF hydration Electrolyte abnormalities - resolved Elevated liver enzymes of undetermined etiology - possibly secondary to hepato-biliary congestion H/O CAD - DC with stents placed in 2000 and 2006 at [facility] H/O HTN - controlled Anemia - undetermined etiology - management per medical services HLD DM H/O gangrenous wound to left foot - follows with Dr. Gomez at [facility] for wound care - management per medical services Probable COPD H/O tobaccoism - quit 2 months ago Plan: Elevated troponin - NSTEMI (ACS) vs Type II DC secondary to CHF/sepsis - continue ASA and Plavix - cardiac cath tomorrow morning, discussed procedure, risks, benefits and potential complications of cardiac cath with possible ad hoc coronary intervention Systolic CHF - treat with diuretics - change to oral - continue Coreg ICM - continue diuretics - renal function improved - add low dose CATHRYN - add aldactone to the regimen - start SGLT2i KELVIN - resolved Sepsis - management per medical services Anemia of undetermined etiology - management per medical services Management of left foot wound per Medical services Monitor lab closely Replace electrolytes as indicated May need to consider Life Vest when ready for discharge d/t low LVEF WARD ENGLISH Mar 28, 2022 09:39
[2022-03-28] MEDS: HYPOCHLOROUS ACID/NaCl (VASHE) 250 ML IR PRN (09:41)
[2022-03-28] MEDS ORDERED: EMPAGLIFLOZIN 10 MG TABLET (JARDIANCE) PO NR (10:00)
[2022-03-28] MEDS ORDERED: lisINopril 5 MG (PRINIVIL) TABLET PO NR (10:00)
[2022-03-28] MEDS ORDERED: SPIRONOLACTONE 25 MG (ALDACTONE) TAB PO NR (10:00)
--- NOTE | 2022-03-28 10:33 | Tele-ICU Progress Note ---
Subjective Date Seen by a Provider: Mar 28, 2022 Time Seen by a Provider: 10:33 Subjective/Events-last exam (Tele-ICU Physician , Progress Note ) Service provided via interactive audio and video telecommunications E-CARE system to a patient admitted to ICU bed in [facility]. Patient is seen today due to persistent need of ICU care Available chart/ vitals / labs / Images reviewed Video assessment done using teleICU camera, rest of exam as per RN Discussed with RN Events overnight : Afebrile hemodynamically stable Respiratory - 2 l I/O = pos Drips: Pressors- no Consultants: Hospital course: (03/26) 62y/o M admitted with NSTEMI, Hyponatremia, KELVIN ,CHF & possible pneumonia,CTA: neg PE. Chronic wound left lateral foot ?osteo 03/26 - LVEF 25-30% 03/27-Wound culture with probable Pseudomonas-->Levaquin 03/27 , ? need MRI A/P ID *PNAsuspected ( RLL , CAP) ( NEG covid and influenza) - started on Ceftriaxone and Azithromycin- changed to levofloxavin 03/27 *Chronic wound to his left foot - wound service to follow, Wound culture with probable Pseudomonas-->Levaquin 03/27 , ? need MRI NSTEMI vs Type 2 ( h/o CAD , s/p stemting in past ) - as per cards , cardiac cath tomorrow morning - full dose lovenox Decompensated systolic CHF - clinically improving - Echocardiogram of 03-26-22 showed LVEF 25-30% - diuretics as per cards KELVIN - hypoperfusion - IMPROVED with IVF Hyponatremia 125 on admission 03/26 ( baseline unknown , AAO , no Sz - received lasix and IVF in ER - will not order urine labs - almost normalized now - follow DM II - ISS Elv lactate - received IVF and lasix in ER - related to hypoperfusion - IVF given in ER - follow elevated D-dimer - CTA chest neg for PE Right pleural effusion - small , probaly parapneumonic Anemia - follow , no sign of bleeding PVD Elevated liver enzymes of undetermined etiology - possibly secondary to congestion Lines : periph , (Central Line Necessity Reviewed) Stokes: OG: Nutrition: Analgesia: Anxiety/ delirium VTE Prophylaxis: idon 40 Stress Ulcer Prophylaxis: na Plans in collaboration with bedside consultants and IM MDs. Discussed with RN to reach out if any questions or concerns A total of 31 minutes of critical care time was devoted to this patient today, required to treat and/or prevent further deterioration of critical care condition ( as above ) . I am remotely monitoring this patient from another state. I am unable to do the bedside exam, and history/physical and pertinent information is taken from other notes in the computer and bedside staff. . Sepsis Event Evaluation Height, Weight, BMI Height: '" Weight: lbs. oz. kg; 22.89 BMI Method: Focused Exam Lactate Level 03/26/22 17:26: Lactic Acid Level 3.05*H 03/26/22 19:38: Lactic Acid Level 2.11*H 03/26/22 21:43: Lactic Acid Level 1.37 Time of Focused Exam: 10:10 Exam Exam Patient acknowledged, consented, and participated in this virtual visit which was conducted using real time audio/video Vital Signs Date Time Temp Pulse Resp B/P (MAP) Pulse Ox O2 Delivery O2 Flow Rate FiO2 03/28/22 10:15 100 Room Air 03/28/22 08:00 36.4 101 18 126/88 (101) 100 Nasal Cannula 2.00 03/28/22 07:00 102 03/28/22 03:30 36.4 100 20 106/76 (86) 99 Room Air 03/28/22 01:00 100 03/27/22 23:40 Nasal Cannula 2.00 03/27/22 23:23 36.6 99 18 104/70 (81) 96 Room Air 03/27/22 22:04 Room Air 03/27/22 20:00 98 Room Air 03/27/22 19:55 36.4 103 18 110/73 (85) 98 Room Air 03/27/22 19:12 36.6 101 21 114/82 (93) 94 Room Air 03/27/22 19:00 100 03/27/22 16:00 104 19 114/72 (86) 96 Room Air 03/27/22 15:29 36.5 107 15 113/74 (87) 98 03/27/22 14:38 98 Room Air 03/27/22 13:23 100 03/27/22 12:00 97 14 109/71 (84) 99 Room Air I & O 03/28/22 07:00 Intake Total 2601.25 ml Output Total 1850 ml Balance 751.25 ml Height & Weight Height: '" Weight: lbs. oz. kg; 22.89 BMI Method: General Appearance: No Apparent Distress, WD/WN HEENT: PERRL/EOMI, Pharynx Normal Neck: Normal Inspection, Supple Respiratory: Lungs Clear, No Respiratory Distress Cardiovascular: Regular Rate, Rhythm, No Murmur Capillary Refill: Less Than 3 Seconds Peripheral Pulses: 2+ Carotid (R), 2+ Carotid (L), 2+ Radial Pulses (R), 2+ Radial Pulses (L) Gastrointestinal: normal bowel sounds, non tender, soft, no pulsatile mass Extremity: Normal Inspection, No Pedal Edema, Other (foot bandaged) Neurologic/Psychiatric: Alert, Normal Mood/Affect Skin: Normal Color, Warm/Dry Results Lab Laboratory Tests 03/26/22 13:10 03/27/22 04:32 03/27/22 04:39 03/28/22 03:07 Assessment/Plan Assessment/Plan 1 CLEMENTINA ALLISON MD Mar 28, 2022 10:33
[2022-03-28 12:00] VITALS: BP 112/79
--- NOTE | 2022-03-28 13:34 | Progress Note - Cardiology ---
Cardiology SOAP Progress Note Subjective: Gen weakness and malaise Shortness of breath better but not resolved No cp or palp or syncope Objective: I&O/Vital Signs 03/28/22 03/28/22 03/28/22 03/28/22 03:30 07:00 08:00 08:00 Temp 36.4 36.4 Pulse 100 102 101 Resp 20 18 B/P (MAP) 106/76 (86) 126/88 (101) Pulse Ox 99 100 98 O2 Delivery Room Air Nasal Cannula Room Air O2 Flow Rate 2.00 03/28/22 03/28/22 03/28/22 10:15 12:00 12:37 Temp 37.3 Pulse 98 96 Resp 16 B/P (MAP) 112/79 (90) Pulse Ox 100 96 O2 Delivery Room Air Room Air 03/28/22 00:00 Intake Total 2576.25 ml Output Total 1400 ml Balance 1176.25 ml Constitutional: AAO x 3, well-developed, well-nourished Respiratory: No accessory muscle use, No respiratory distress; chest expansion is symmetric, rhonchi (scattered), other (diminished bases bilat) Cardiovascular: regular rate-rhythm; No JVD; S1 and S2 Gastrointestional: No tender; soft, audible bowel sounds Extremities: no lower extremity edema bilateral Neurologic/Psychiatric: grossly intact (moves all extremities) Skin: pallor, other (dressing to left foot - not removed) Results/Procedures: Labs Laboratory Tests 03/27/22 20:19: Glucometer 142H 03/28/22 03:07: White Blood Count 8.9, Red Blood Count 3.67L, Hemoglobin 8.3L, Hematocrit 26L, Mean Corpuscular Volume 71L, Mean Corpuscular Hemoglobin 23L, Mean Corpuscular Hemoglobin Concent 32, Red Cell Distribution Width 15.9H, Platelet Count 338, Mean Platelet Volume 8.7L, Immature Granulocyte % (Auto) 0, Neutrophils (%) (Auto) 85H, Lymphocytes (%) (Auto) 5L, Monocytes (%) (Auto) 10, Eosinophils (%) (Auto) 0, Basophils (%) (Auto) 0, Neutrophils # (Auto) 7.5, Lymphocytes # (Auto) 0.4L, Monocytes # (Auto) 0.9, Eosinophils # (Auto) 0.0, Basophils # (Auto) 0.0, Immature Granulocyte # (Auto) 0.0, Sodium Level 134L, Potassium Level 4.2, Chloride Level 102, Carbon Dioxide Level 21, Anion Gap 11, Blood Urea Nitrogen 41H, Creatinine 0.95, Estimat Glomerular Filtration Rate 90, BUN/Creatinine Ratio 43, Glucose Level 85, Calcium Level 8.6, Corrected Calcium 9.1, Magnesium Level 1.9, Total Bilirubin 0.3, Aspartate Amino Transf (AST/SGOT) 43H, Alanine Aminotransferase (ALT/SGPT) 91H, Alkaline Phosphatase 104, Total Protein 5.9L, Albumin 3.4 03/28/22 10:41: Glucometer 125H 03/28/22 13:10: Glucometer 111H Microbiology 03/26/22 Gram Stain - Final, Resulted 03/26/22 Wound Culture - Preliminary, Resulted Mixed Bacterial Jewell Pseudomonas aeruginosa Pseudomonas aeruginosa#2 Susceptibility To Follow 03/26/22 Blood Culture - Preliminary, Resulted No growth Laboratory Tests 03/27/22 04:32 03/27/22 04:39 03/28/22 03:07 A/P: Assessment: Elevated troponin - NSTEMI vs Type 2 AK d/t acute renal failure, sepsis and heart failure - no c/o CP Decompensated systolic CHF due to ischemic cardiomyopathy - clinically improving - Echocardiogram of 03-26-22 showed LVEF 25-30%, anteroseptal and apical hypokinesis, mild MR ICM Sepsis - management per medical services KELVIN - likely d/t sepsis and hypotension - improved with IVF hydration Electrolyte abnormalities - resolved Elevated liver enzymes of undetermined etiology - possibly secondary to hepato-biliary congestion H/O CAD - [place] with stents placed in 2000 and 2006 at [facility] H/O HTN - controlled Anemia - undetermined etiology - management per medical services HLD DM H/O gangrenous wound to left foot - follows with [facility] for wound care - Management per Medical services Probable COPD H/O tobaccoism - quit 2 months ago Plan: Elevated troponin - NSTEMI (ACS) vs Type II AK secondary to CHF/sepsis - continue ASA and Plavix - cardiac cath tomorrow morning; discussed procedure, risks, benefits and potential complications of cardiac cath with possible ad hoc coronary in tervention; he understands and consents Systolic CHF - treat with diuretics - change to oral - continue Coreg ICM - continue diuretics - renal function improved - add low dose CATHRYN - add aldactone to the regimen - start SGLT2i KELVIN - resolved Sepsis - management per medical services Anemia of undetermined etiology - management per medical services Management of left foot wound per Medical services Monitor lab closely Replace electrolytes as indicated May need to consider Life Vest when ready for discharge d/t low LVEF CHRISTY ANTONIO MD FACP FAC CCDS Mar 28, 2022 13:34
[2022-03-28 15:03] VITALS: BP 112/79
[2022-03-28 16:00] VITALS: BP 105/69
[2022-03-28 20:00] VITALS: BP 97/63
--- NOTE | 2022-03-28 20:05 | Progress Note - Hospitalist ---
Subjective HPI/CC On Admission Date Seen by Provider: Mar 28, 2022 Time Seen by Provider: 10:30 Kip Gilman is a 62 year old male with PMH HTN, T2DM, HLD, CAD, PAD, former smoker, who presented with shortness of breath. He reports having symptoms for about 4 days. He also had a cough. He reports chest pain with deep breaths. He denies fevers and chills. He denies abdominal pain. He denies nausea and vomiting. He denies diarrhea. He has a chronic foot ulcer and follows with wound care. Subjective/Events-last exam He is feeling better. He denies chest pain. His breathing is better. Focused Exam Lactate Level 03/26/22 17:26: Lactic Acid Level 3.05*H 03/26/22 19:38: Lactic Acid Level 2.11*H 03/26/22 21:43: Lactic Acid Level 1.37 Time of Focused Exam: 10:10 Objective Exam Vital Signs Vital Signs Date Time Temp Pulse Resp B/P (MAP) Pulse Ox O2 Delivery O2 Flow Rate FiO2 03/28/22 16:00 36.6 98 16 105/69 (81) 95 Room Air 03/28/22 08:00 2.00 03/26/22 13:49 21 Capillary Refill : Less Than 3 Seconds General Appearance: No Apparent Distress, WD/WN Respiratory: Lungs Clear, No Respiratory Distress Cardiovascular: Regular Rate, Rhythm, No Murmur Gastrointestinal: Normal Bowel Sounds, Soft Extremity: Normal Inspection, No Pedal Edema Neurologic/Psychiatric: Alert, Normal Mood/Affect Skin: Normal Color, Warm/Dry Results/Procedures Lab Laboratory Tests 03/28/22 03:07 Patient resulted labs reviewed. Imaging: Reviewed Imaging Report Assessment/Plan Assessment and Plan Assess & Plan/Chief Complaint NSTEMI Acute HFrEF Likely ischemic cardiomyopathy CAD CHF HLD HTN Troponin elevated, trended up Cardiology following ASA Plavix Echo with EF 25-30%, apical hypokinesis Started on Lisinopril, Coreg, and Aldactone Planning for left heart cath tomorrow May need LifeVest PAD Not septic Chronic foot wound Wound care following Case discussed with Dr. Leonel WILLAMS with possible early osteomyelitis ESR normal, CRP minimally elevated Wound culture with probable Pseudomonas Levaquin Will likely need MRI and/or bone biopsy outpatient Will likely need PAD evaluation outpatient Iron deficiency anemia s/p Infed infusion Will likely need colonoscopy outpatient T2DM Levemir, decreased dose Sliding scale insulin DVT prophylaxis: Lovenox Lactic acidosis, resolved KELVIN, resolved Hyponatremia, resolved High anion gap metabolic acidosis, resolved Hyperkalemia, resolved Diagnosis/Problems Diagnosis/Problems (1) Non-ST elevation NM (NSTEMI) Status: Acute (2) Congestive heart failure Status: Acute Qualifiers: Heart failure type: unspecified Heart failure chronicity: unspecified Qualified Codes: I50.9 - Heart failure, unspecified (3) Lactic acidosis Status: Resolved Resolution Date/Time: 03/27/22 @ 15:09 (4) KELVIN (acute kidney injury) Status: Resolved Resolution Date/Time: 03/27/22 @ 15:09 (5) HTN (hypertension) Status: Chronic (6) HLD (hyperlipidemia) Status: Chronic (7) CAD (coronary artery disease) Status: Chronic (8) PAD (peripheral artery disease) Status: Chronic (9) Chronic ulcer of left foot due to diabetes mellitus Status: Chronic (10) T2DM (type 2 diabetes mellitus) Status: Chronic Qualifiers: Diabetes mellitus detention insulin use: with terminal makeup operator use Diabetes mellitus complication status: with hyperglycemia Qualified Codes: E11.65 - Type 2 diabetes mellitus with hyperglycemia; Z79.4 - alf (current) use of insulin (11) Acute HFrEF (heart failure with reduced ejection fraction) Status: Acute BAN WEEKS MD Mar 28, 2022 20:05
[2022-03-28] MEDS: MIRTAZAPINE 15 MG (REMERON) TAB PO SCH (20:29)
[2022-03-29] VITALS (13 sets, daily range): BP systolic 93–120; BP diastolic 64–86
[2022-03-29 05:17] LABS: BASOPHILS % (AUTO) 0 % (0-10); EOSINOPHILS % (AUTO) 0 % (0-10); HEMATOCRIT 29 % (40-54); LYMPHOCYTES # (AUTO) 0.6 10^3/uL (1.0-4.0); LYMPHOCYTES % (AUTO) 6 % (12-44); MEAN CORPUSCULAR HEMOGLOBIN 23 pg (25-34); MEAN CORPUSCULAR HGB CONC 32 g/dL (32-36); MEAN CORPUSCULAR VOLUME 72 fL (80-99); MEAN PLATELET VOLUME 8.8 fL (9.0-12.2); MONOCYTES # (AUTO) 1.1 10^3/uL (0.0-1.0); MONOCYTES % (AUTO) 12 % (0-12); NEUTROPHILS # (AUTO) 7.4 10^3/uL (1.8-7.8); NEUTROPHILS % (AUTO) 81 % (42-75); PLATELET COUNT 382 10^3/uL (130-400); WHITE BLOOD COUNT 9.1 10^3/uL (4.3-11.0)
[2022-03-29] MEDS: MAGNESIUM 1 GM/100 ML IVPB 100 ML IV SCH (05:51)
[2022-03-29 06:00] LABS: ALBUMIN 3.4 GM/DL (3.2-4.5); POTASSIUM 3.9 MMOL/L (3.6-5.0)
[2022-03-29] MEDS ORDERED: NS IV 1000 ML 1,000 ML IV SCH ×2 (06:00→09:30)
[2022-03-29 06:02] LABS: CALCIUM 9.1 MG/DL (8.5-10.1)
[2022-03-29 06:05] LABS: BILIRUBIN,TOTAL 0.4 MG/DL (0.1-1.0)
[2022-03-29 06:07] LABS: CREATININE SERUM 1.04 MG/DL (0.60-1.30)
[2022-03-29] MEDS ORDERED: DEXTROSE 50% 50 ML (IMS) SYR ONE (06:18)
[2022-03-29] MEDS: inSUlin ASPART (NovoLOG) 1 UNIT/0.01 ML (CHARGE PER UNIT) SC SCH ×4 (06:23→20:46)
[2022-03-29] MEDS ORDERED: DEXTROSE 50% 50 ML (IMS) SYR IV ONE (06:30)
[2022-03-29] MEDS: POTASSIUM CL 10MEQ/50ML IVPB 50 ML IV SCH (06:31)
[2022-03-29] MEDS: KCL 20 MEQ TAB (K-DUR) PO SCH (06:31)
[2022-03-29] MEDS ORDERED: LIDOCAINE 1% INJ 20 ML VIAL ONE (06:53)
[2022-03-29] MEDS ORDERED: HEParin (CATH LAB) 2,000 ML IV ONE (06:53)
[2022-03-29] MEDS ORDERED: MIDAZOLAM 5 MG/5 ML (VERSED) VIAL ONE (07:34)
[2022-03-29] MEDS ORDERED: fentaNYL INJ 100 MCG/2 ML AMP ONE (07:34)
[2022-03-29] MEDS ORDERED: EPTIFIBATIDE BOLUS 10 ML IV ONE (08:39)
[2022-03-29] MEDS ORDERED: HEParin 1000 UNIT/ML (10ML VIAL) FOR BOLUS ONE (08:39)
[2022-03-29] MEDS ORDERED: CLOPIDOGREL 75 MG (PLAVIX) TABLET ONE (09:05)
[2022-03-29] MEDS ORDERED: ASPIRIN 81 MG CHEW (CHILDREN'S ASA) ONE (09:05)
--- NOTE | 2022-03-29 09:15 | Progress Note - Cardiology ---
Cardiology SOAP Progress Note Subjective: shortness of breath present no cp at this time no palp or syncope gen weakness and malaise no n/v/d Objective: I&O/Vital Signs 03/29/22 03/29/22 03/29/22 03/29/22 00:00 00:00 01:00 04:00 Temp 36.7 Pulse 92 92 96 Resp 26 27 B/P (MAP) 98/64 (75) 93/78 (83) Pulse Ox 94 96 O2 Delivery Room Air Room Air 03/29/22 03/29/22 04:53 07:00 Temp 36.5 Pulse 93 03/29/22 00:00 Intake Total 1090 ml Output Total 1275 ml Balance -185 ml Constitutional: AAO x 3, well-developed, well-nourished Respiratory: No accessory muscle use, No respiratory distress; chest expansion is symmetric, rhonchi (scattered), other (diminished bases bilat) Cardiovascular: regular rate-rhythm; No JVD; S1 and S2 Gastrointestional: No tender; soft, audible bowel sounds Extremities: no lower extremity edema bilateral Neurologic/Psychiatric: grossly intact (moves all extremities) Skin: pallor, other (dressing to left foot - not removed) Results/Procedures: Labs Laboratory Tests 03/28/22 10:41: Glucometer 125H 03/28/22 13:10: Glucometer 111H 03/28/22 15:18: Glucometer 214H 03/28/22 20:20: Glucometer 130H 03/29/22 05:05: White Blood Count 9.1, Red Blood Count 3.98L, Hemoglobin 9.0L, Hematocrit 29L, Mean Corpuscular Volume 72L, Mean Corpuscular Hemoglobin 23L, Mean Corpuscular Hemoglobin Concent 32, Red Cell Distribution Width 16.1H, Platelet Count 382, Mean Platelet Volume 8.8L, Immature Granulocyte % (Auto) 1, Neutrophils (%) (Auto) 81H, Lymphocytes (%) (Auto) 6L, Monocytes (%) (Auto) 12, Eosinophils (%) (Auto) 0, Basophils (%) (Auto) 0, Neutrophils # (Auto) 7.4, Lymphocytes # (Auto) 0.6L, Monocytes # (Auto) 1.1H, Eosinophils # (Auto) 0.0, Basophils # (Auto) 0.0, Immature Granulocyte # (Auto) 0.1, Sodium Level 132L, Potassium Level 3.9, Chloride Level 98, Carbon Dioxide Level 20L, Anion Gap 14, Blood Urea Nitrogen 35H, Creatinine 1.04, Estimat Glomerular Filtration Rate 81, BUN/Creatinine Ratio 34, Glucose Level 51*L, Calcium Level 9.1, Corrected Calcium 9.6, Magnesium Level 1.8, Total Bilirubin 0.4, Aspartate Amino Transf (AST/SGOT) 94H, Alanine Aminotransferase (ALT/SGPT) 176H, Alkaline Phosphatase 163H, Total Protein 6.0L, Albumin 3.4 03/29/22 06:54: Glucometer 154H 03/29/22 08:23: Glucometer 94 Microbiology 03/26/22 Gram Stain - Final, Resulted 03/26/22 Wound Culture - Preliminary, Resulted Mixed Bacterial Jewell Pseudomonas aeruginosa Pseudomonas aeruginosa#2 Susceptibility To Follow 03/26/22 Blood Culture - Preliminary, Resulted No growth Laboratory Tests 03/28/22 03:07 03/29/22 05:05 A/P: Assessment: Ac NSTEMI - Card cath on 03-29-22: LMCA ok. LAD is diffusely and severely disease, including multiple instent stenoses, not amenable to revascularization. LCX is large and dominant and had 95% mid vessel stenosis to which successful balloon angioplasty reduced stenosis to <20%. OM1 of LCX is chronically occluded beginning at its ostium (including a stent in its prox portion). RCA is nondominant and severely and diffusely diseased Acute systolic CHF due to ischemic cardiomyopathy - clinically improving - Echocardiogram of 03-26-22 showed LVEF 25-30%, anteroseptal and apical hypokinesis, mild MR ICM Sepsis - management per medical services KELVIN - likely d/t sepsis and hypotension - improved with IVF hydration Electrolyte abnormalities - resolved Elevated liver enzymes of undetermined etiology - possibly secondary to hepato-biliary congestion H/O CAD - [place] with stents placed in 2000 and 2006 at [facility] H/O HTN - controlled Anemia - undetermined etiology - management per medical services HLD DM H/O gangrenous wound to left foot - follows with [facility] for wound care - Management per Medical services Probable COPD H/O tobaccoism - quit 2 months ago Plan: * DAPT * Statin * BB * CATHRYN-inhib * Spironolactone * SGLT-2 inhib * Monitor labs * Life Vest if he agrees CHRISTY ANTONIO [facility] CCDS Mar 29, 2022 09:15
[2022-03-29] MEDS ORDERED: PATIENT MAY USE OWN MEDS, ALL PO SCH (09:30)
[2022-03-29] MEDS: ENOXAPARIN 40 MG/0.4 ML (LOVENOX) SYR SQ SCH (09:52)
[2022-03-29] MEDS: CLOPIDOGREL 75 MG (PLAVIX) TABLET PO SCH (09:52)
[2022-03-29] MEDS: ASPIRIN 81 MG CHEW (CHILDREN'S ASA) PO SCH (09:52)
[2022-03-29] MEDS: DOCUSATE SODIUM 100 MG (COLACE) CAP PO SCH ×2 (09:57→20:46)
[2022-03-29] MEDS: FUROSEMIDE 40 MG (LASIX) TAB PO SCH (09:57)
[2022-03-29] MEDS: lisINopril 5 MG (PRINIVIL) TABLET PO SCH (09:57)
[2022-03-29] MEDS: SPIRONOLACTONE 25 MG (ALDACTONE) TAB PO SCH (09:57)
[2022-03-29] MEDS: EMPAGLIFLOZIN 10 MG TABLET (JARDIANCE) PO SCH (09:57)
--- NOTE | 2022-03-29 13:25 | CARDIAC CATHETERIZATION ---
CARDIAC CATHETERIZATION REPORT INDICATION: The patient is a 62-year-old gentleman who was hospitalized with acute non-ST elevation myocardial infarction and acute systolic congestive heart failure. Congestive heart failure was treated and he then underwent cardiac catheterization after having provided informed consent for cardiac catheterization and possible ad hoc coronary intervention. DESCRIPTION OF PROCEDURE: The patient was brought to the cardiac catheterization laboratory. Right groin was prepared and draped in the usual sterile fashion. 1% lidocaine was used for local anesthesia. Modified Seldinger technique was used to advance a 5-English sheath in the right femoral artery. 5-English JL4 catheter was used for left coronary angiography, 5-English JR4 catheter used for right coronary angiography. A 5-English pigtail catheter used for left heart catheterization. Left ventricular angiography was not performed because the left ventricular end-diastolic pressure was markedly elevated. The pigtail was pulled back and removed. We then proceeded with percutaneous intervention to the mid left circumflex artery and it is described below. PERCUTANEOUS INTERVENTION TO THE MID LEFT CIRCUMFLEX: The mid left circumflex artery was intervened on because the patient had presented with acute non-ST elevation myocardial infarction. The left circumflex artery was exhibiting a 95% mid vessel stenosis. The left circumflex artery is dominant. We exchanged the sheath over a wire for a 6-English sheath and gave 5000 units of intravenous heparin and a double bolus of Integrilin. We engaged the left coronary artery with a JL4 guide catheter. We were able to advance the BMW wire across the lesion and the tip was placed in the distal vessel. As mentioned, left circumflex artery is dominant. Prior to the intervention, the stenosis was 95% and the distal flow was HESHAM 2. We carried out balloon angioplasty with a 2.5 x 30 mm balloon. This reduced the stenosis to less than 20% and improved the flow to HESHAM 3. He tolerated the procedure well. We removed the angioplasty equipment and sutured the sheath in place for manual sheath removal on the floor. HEMODYNAMICS: Left ventricular end diastolic pressure following coronary angiography was 34 mmHg. There is no significant pressure gradient on pullback across the aortic valve. CORONARY ANGIOGRAPHY: Left main coronary artery is free of significant disease. Left anterior descending artery is diffusely and severely diseased, including within multiple stents that are present in the proximal and mid portion of the left anterior descending. The entire vessel is severely diseased and does not appear amenable to intervention. Left circumflex artery is large and dominant. First obtuse marginal branch is occluded at its ostium. The vessel appears to have previously been stented, but the entire vessel, including the stented segment of the first obtuse marginal branch is completely occluded. The left circumflex artery was exhibiting 95% mid vessel stenosis with successful balloon angioplasty was carried out further reduction of in-stent stenosis to less than 20%, as described in detail above. The left circumflex artery is dominant. The right coronary artery is small and nondominant and is severely and diffusely diseased. CONCLUSIONS: 1. Multivessel coronary artery disease. Left main coronary artery is okay. Left anterior descending artery has severe diffuse disease, including in multiple stented segments, and the vessel is not amenable to intervention. The left circumflex artery had 95% mid vessel stenosis with successful balloon angioplasty resulted in improvement of stenosis to less than 20% and improvement of flow from HESHAM 2 to HESHAM 3. The first obtuse marginal branch of the left circumflex artery has a stent in its proximal portion but chronically occluded at its ostium, including a and is not amenable to intervention. The left circumflex artery is dominant. The right coronary artery is small and nondominant and is diffusely diseased. 2. Elevated left ventricular end-diastolic pressure. Job ID: [id number] DocumentID: [id number] Dictated Date: 03/29/2022 09:28:39 Internet Marketer Date: 03/29/2022 13:23:00 Dictated By: CHRISTY ANTONIO MD; RUDI; IRENAP; IRENAC; ZUNILDA
--- NOTE | 2022-03-29 17:10 | Progress Note - Hospitalist ---
Subjective HPI/CC On Admission Date Seen by Provider: Mar 29, 2022 Time Seen by Provider: 11:00 Kip Gilman is a 62 year old male with PMH HTN, T2DM, HLD, CAD, PAD, former smoker, who presented with shortness of breath. He reports having symptoms for about 4 days. He also had a cough. He reports chest pain with deep breaths. He denies fevers and chills. He denies abdominal pain. He denies nausea and vomiting. He denies diarrhea. He has a chronic foot ulcer and follows with wound care. Subjective/Events-last exam He denies chest pain. He denies shortness of breath. He is feeling ok. Focused Exam Lactate Level 03/26/22 17:26: Lactic Acid Level 3.05*H 03/26/22 19:38: Lactic Acid Level 2.11*H 03/26/22 21:43: Lactic Acid Level 1.37 Time of Focused Exam: 10:10 Objective Exam Vital Signs Vital Signs Date Time Temp Pulse Resp B/P (MAP) Pulse Ox O2 Delivery O2 Flow Rate FiO2 03/29/22 16:00 99 33 89 Room Air 03/29/22 15:41 36.2 03/28/22 08:00 2.00 03/26/22 13:49 21 Capillary Refill : Less Than 3 Seconds General Appearance: No Apparent Distress, WD/WN Respiratory: Lungs Clear, No Respiratory Distress Cardiovascular: Regular Rate, Rhythm, No Murmur Gastrointestinal: Normal Bowel Sounds, Soft Extremity: Normal Inspection, No Pedal Edema, Other (harrington bag on right groin) Neurologic/Psychiatric: Alert, Normal Mood/Affect Results/Procedures Lab Laboratory Tests 03/29/22 05:05 Patient resulted labs reviewed. Imaging: Reviewed Imaging Report Assessment/Plan Assessment and Plan Assess & Plan/Chief Complaint NSTEMI Acute HFrEF Likely ischemic cardiomyopathy CAD CHF HLD HTN Troponin elevated, trended up Cardiology following ASA Plavix Echo with EF 25-30%, apical hypokinesis Started on Lisinopril, Coreg, and Aldactone Left heart cath today with balloon angioplasty of left circumflex May need LifeVest PAD Not septic Chronic foot wound Wound care following Case discussed with Dr. Loenel WILLAMS with possible early osteomyelitis ESR normal, CRP minimally elevated Wound culture with probable Pseudomonas Levaquin Will likely need MRI and/or bone biopsy outpatient Will likely need PAD evaluation outpatient Iron deficiency anemia s/p Infed infusion Will likely need colonoscopy outpatient T2DM Levemir, decreased dose Sliding scale insulin DVT prophylaxis: Lovenox Lactic acidosis, resolved KELVIN, resolved Hyponatremia, resolved High anion gap metabolic acidosis, resolved Hyperkalemia, resolved Diagnosis/Problems Diagnosis/Problems (1) Non-ST elevation [place] (NSTEMI) Status: Acute (2) Congestive heart failure Status: Acute Qualifiers: Heart failure type: unspecified Heart failure chronicity: unspecified Qualified Codes: I50.9 - Heart failure, unspecified (3) Lactic acidosis Status: Resolved Resolution Date/Time: 03/27/22 @ 15:09 (4) KELVIN (acute kidney injury) Status: Resolved Resolution Date/Time: 03/27/22 @ 15:09 (5) HTN (hypertension) Status: Chronic (6) HLD (hyperlipidemia) Status: Chronic (7) CAD (coronary artery disease) Status: Chronic (8) PAD (peripheral artery disease) Status: Chronic (9) Chronic ulcer of left foot due to diabetes mellitus Status: Chronic (10) T2DM (type 2 diabetes mellitus) Status: Chronic 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
[2022-03-29] MEDS ORDERED: ENOXAPARIN 40 MG/0.4 ML (LOVENOX) SYR SQ SCH (20:00)
[2022-03-29] MEDS: MIRTAZAPINE 15 MG (REMERON) TAB PO SCH (20:46)
[2022-03-29 21:50] LABS: HEPATITIS C ANTIBODY C Non-Reactive (Non-Reactive)
[2022-03-30 00:10] VITALS: BP 101/70
[2022-03-30 03:45] VITALS: BP 100/64
[2022-03-30 05:18] LABS: BASOPHILS % (AUTO) 0 % (0-10); EOSINOPHILS % (AUTO) 0 % (0-10); HEMATOCRIT 28 % (40-54); HEMOGLOBIN 8.7 g/dL (13.3-17.7); LYMPHOCYTES # (AUTO) 0.4 10^3/uL (1.0-4.0); LYMPHOCYTES % (AUTO) 5 % (12-44); MEAN CORPUSCULAR HEMOGLOBIN 23 pg (25-34); MEAN CORPUSCULAR HGB CONC 31 g/dL (32-36); MEAN CORPUSCULAR VOLUME 73 fL (80-99); MEAN PLATELET VOLUME 8.9 fL (9.0-12.2); MONOCYTES # (AUTO) 1.2 10^3/uL (0.0-1.0); MONOCYTES % (AUTO) 13 % (0-12); NEUTROPHILS # (AUTO) 6.8 10^3/uL (1.8-7.8); NEUTROPHILS % (AUTO) 79 % (42-75); PLATELET COUNT 389 10^3/uL (130-400); WHITE BLOOD COUNT 8.6 10^3/uL (4.3-11.0)
[2022-03-30 05:54] LABS: ALBUMIN 3.1 GM/DL (3.2-4.5); BILIRUBIN,TOTAL 0.5 MG/DL (0.1-1.0); CALCIUM 8.6 MG/DL (8.5-10.1); CREATININE SERUM 0.98 MG/DL (0.60-1.30); MAGNESIUM 1.7 MG/DL (1.6-2.4); POTASSIUM 3.9 MMOL/L (3.6-5.0); TOTAL PROTEIN 5.5 GM/DL (6.4-8.2)
[2022-03-30] MEDS: POTASSIUM CL 10MEQ/50ML IVPB 50 ML IV SCH (06:07)
[2022-03-30] MEDS: KCL 20 MEQ TAB (K-DUR) PO SCH (06:07)
[2022-03-30] MEDS: MAGNESIUM 1 GM/100 ML IVPB 100 ML IV SCH ×3 (06:07→06:13)
[2022-03-30] MEDS: inSUlin ASPART (NovoLOG) 1 UNIT/0.01 ML (CHARGE PER UNIT) SC SCH ×2 (06:12→12:33)
[2022-03-30 08:00] VITALS: BP 102/65
[2022-03-30] MEDS: FUROSEMIDE 40 MG (LASIX) TAB PO SCH (08:35)
[2022-03-30] MEDS: DOCUSATE SODIUM 100 MG (COLACE) CAP PO SCH (08:35)
[2022-03-30] MEDS: ASPIRIN 81 MG CHEW (CHILDREN'S ASA) PO SCH (08:35)
[2022-03-30] MEDS: lisINopril 5 MG (PRINIVIL) TABLET PO SCH (08:35)
[2022-03-30] MEDS: CLOPIDOGREL 75 MG (PLAVIX) TABLET PO SCH (08:35)
[2022-03-30] MEDS: SPIRONOLACTONE 25 MG (ALDACTONE) TAB PO SCH (08:35)
[2022-03-30] MEDS: EMPAGLIFLOZIN 10 MG TABLET (JARDIANCE) PO SCH (08:35)
[2022-03-30 12:00] VITALS: BP 67/34
--- NOTE | 2022-03-30 12:02 | Progress Note - Cardiology ---
Cardiology SOAP Progress Note Subjective: No cp or palp or syncope No groin or leg discomfort No n/v/d No focal weakness No shortness of breath Insists on going home Objective: I&O/Vital Signs 03/30/22 03/30/22 03/30/22 03/30/22 00:10 01:00 03:45 07:00 Temp 36.4 36.6 Pulse 98 92 93 99 Resp 18 18 B/P (MAP) 101/70 (80) 100/64 (76) Pulse Ox 98 94 O2 Delivery Room Air Room Air 03/30/22 03/30/22 08:00 08:00 Pulse 94 Resp 18 B/P (MAP) 102/65 (77) Pulse Ox 99 O2 Delivery Room Air Room Air 03/30/22 00:00 Intake Total 1950 ml Output Total 2225 ml Balance -275 ml Constitutional: AAO x 3, well-developed, well-nourished Respiratory: No accessory muscle use, No respiratory distress; chest expansion is symmetric, rhonchi (scattered), other (diminished bases bilat) Cardiovascular: regular rate-rhythm; No JVD; S1 and S2 Gastrointestional: No tender; soft, audible bowel sounds Extremities: no lower extremity edema bilateral Neurologic/Psychiatric: grossly intact (moves all extremities) Skin: pallor, other (dressing to left foot - not removed) Results/Procedures: Labs Laboratory Tests 03/29/22 15:21: Glucometer 131H 03/29/22 20:16: Glucometer 196H 03/30/22 04:15: White Blood Count 8.6, Red Blood Count 3.86L, Hemoglobin 8.7L, Hematocrit 28L, Mean Corpuscular Volume 73L, Mean Corpuscular Hemoglobin 23L, Mean Corpuscular Hemoglobin Concent 31L, Red Cell Distribution Width 16.5H, Platelet Count 389, Mean Platelet Volume 8.9L, Immature Granulocyte % (Auto) 2, Neutrophils (%) (Auto) 79H, Lymphocytes (%) (Auto) 5L, Monocytes (%) (Auto) 13H, Eosinophils (%) (Auto) 0, Basophils (%) (Auto) 0, Neutrophils # (Auto) 6.8, Lymphocytes # (Auto) 0.4L, Monocytes # (Auto) 1.2H, Eosinophils # (Auto) 0.0, Basophils # (Auto) 0.0, Immature Granulocyte # (Auto) 0.2H, Sodium Level 130L, Potassium Level 3.9, Chloride Level 98, Carbon Dioxide Level 21, Anion Gap 11, Blood Urea Nitrogen 29H, Creatinine 0.98, Estimat Glomerular Filtration Rate 87, BUN/Creatinine Ratio 30, Glucose Level 163H, Calcium Level 8.6, Corrected Calcium 9.3, Magnesium Level 1.7, Total Bilirubin 0.5, Aspartate Amino Transf (AST/SGOT) 38H, Alanine Aminotransferase (ALT/SGPT) 135H, Alkaline Phosphatase 133, Total Protein 5.5L, Albumin 3.1L 03/30/22 10:46: Glucometer 239H Microbiology 03/26/22 Gram Stain - Final, Resulted 03/26/22 Wound Culture - Preliminary, Resulted Mixed Bacterial Jewell Pseudomonas aeruginosa Pseudomonas aeruginosa#2 Proteus vulgaris 03/26/22 Blood Culture - Preliminary, Resulted No growth Laboratory Tests 03/29/22 05:05 03/30/22 04:15 A/P: Assessment: Ac NSTEMI - Card cath on 03-29-22: LMCA ok. LAD is diffusely and severely disease, including multiple instent stenoses, not amenable to revascularization. LCX is large and dominant and had 95% mid vessel stenosis to which successful balloon angioplasty reduced stenosis to <20%. A proximally stented OM1 of LCX is chronically occluded beginning at its ostium. RCA is nondominant and severely and diffusely diseased Acute systolic CHF due to ischemic cardiomyopathy - clinically improving - Echocardiogram of 03-26-22 showed LVEF 25-30%, anteroseptal and apical hypokinesis, mild MR ICM Sepsis - management per medical services KELVIN - likely d/t sepsis and hypotension - improved with IVF hydration Electrolyte abnormalities - resolved Elevated liver enzymes of undetermined etiology - possibly secondary to hepato-biliary congestion H/O CAD - [place] with stents placed in 2000 and 2006 at [facility] H/O HTN - controlled Anemia - undetermined etiology - management by Dr Valentine of the Hospitalist alonso [facility] H/o gangrenous wound to left foot - follows with [facility] for wound care - Management per Hospitalist services Probable COPD H/O tobaccoism - quit 2 months ago Plan: * I had a detailed discussion with him regarding his cath findings, intervention undertaken, and continuing treatment plan * GDMT for ac on ch HFrEF due to ischemic cardiomyopathy is to continue (as all owed by bp). We have advised compliance. Not able to increase meds at this time due to blood pressure limitations * Advised Life Vest. Rationale and pros and cons reviewed. 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
[2022-03-30] MEDS ORDERED: LEVO750T PO (14:11)
[2022-03-30] MEDS ORDERED: SPIR25TA5 PO (14:11)
[2022-03-30] MEDS ORDERED: FERR325T18 PO (14:11)
[2022-03-30] MEDS ORDERED: LISI5TAB20 PO (14:11)
[2022-03-30] MEDS ORDERED: FURO20TA4 PO (14:11)
[2022-03-30] MEDS ORDERED: CARV3.122 PO (14:11)
--- NOTE | 2022-03-30 14:33 | Discharge Summary ---
Discharge Summary Hospital Course Problems/Dx: (1) Non-ST elevation [place] (NSTEMI) Status: Acute (2) Congestive heart failure Status: Acute Qualifiers: Qualified Codes: I50.9 - Heart failure, unspecified (3) Lactic acidosis Status: Resolved (4) KELVIN (acute kidney injury) Status: Resolved (5) HTN (hypertension) Status: Chronic (6) HLD (hyperlipidemia) Status: Chronic (7) CAD (coronary artery disease) Status: Chronic (8) PAD (peripheral artery disease) Status: Chronic (9) Chronic ulcer of left foot due to diabetes mellitus Status: Chronic (10) T2DM (type 2 diabetes mellitus) Status: Chronic Qualifiers: Qualified Codes: E11.65 - Type 2 diabetes mellitus with hyperglycemia; Z79.4 - jail (current) use of insulin (11) Acute HFrEF (heart failure with reduced ejection fraction) Status: Acute (12) MASHA (iron deficiency anemia) Status: Acute Hospital Course Date of Admission: Mar 26, 2022 at 12:19 Admission Diagnosis : NSTEMI Family Physician/Provider: Azam Moses Physician Date of Discharge: 03/30/22 Discharge Diagnosis: NSTEMI, Acute HFrEF, ischemic cardiomyopathy Hospital Course: Kip Gilman is a 62 year old male who was admitted with NSTEMI. His troponin was elevated and trended up. Cardiology was consulted and assisted with his care. He was found to have newly diagnosed decreased EF on echo with 25-30% and apical hypokinesis. He underwent a left heart cath and was found to have severe LAD disease not amenable to interventioin and left circumflex obstructive disease and had balloon angioplasty. He was continued on ASA and Plavix. He was continued on Lisinopril and Coreg at lower doses due to low-normal blood pressures. He was started on Aldactone. He was also dehydrated with lactic acidosis and acute kidney injury on arrival. This resolved with IV fluid resuscitation. He was SIRS positive but without source for acute infection. He does have a chronic foot wound and follows with Dr. Gomez at [facility] wound clinic. Our wound care physician was consulted and performed xray. This showed concern for early osteomyelitis. He may need an MRI for further evaluation as an outpatient. He was given a prescription for Levaquin for pseudomonal infection of the wound. He will also likely need a PAD evaluation as an outpatient. He was found to have iron deficiency anemia. He was given an Infed infusion. He was started on iron supplementation. He should follow up with surgery for a colonoscopy to further evaluate his iron deficiency anemia. He was encouraged to get a LifeVest. He elected to discharge home without waiting for it and will try to get one as an outpatient. He was discharged home in stable condition. He should follow up with his PCP, wound care, cardiology, and surgery as scheduled. Labs and Pending Lab Test: Laboratory Tests 03/29/22 15:21: Glucometer 131H 03/29/22 20:16: Glucometer 196H 03/30/22 04:15: White Blood Count 8.6, Red Blood Count 3.86L, Hemoglobin 8.7L, Hematocrit 28L, Mean Corpuscular Volume 73L, Mean Corpuscular Hemoglobin 23L, Mean Corpuscular Hemoglobin Concent 31L, Red Cell Distribution Width 16.5H, Platelet Count 389, Mean Platelet Volume 8.9L, Immature Granulocyte % (Auto) 2, Neutrophils (%) (Auto) 79H, Lymphocytes (%) (Auto) 5L, Monocytes (%) (Auto) 13H, Eosinophils (%) (Auto) 0, Basophils (%) (Auto) 0, Neutrophils # (Auto) 6.8, Lymphocytes # (Auto) 0.4L, Monocytes # (Auto) 1.2H, Eosinophils # (Auto) 0.0, Basophils # (Auto) 0.0, Immature Granulocyte # (Auto) 0.2H, Sodium Level 130L, Potassium Level 3.9, Chloride Level 98, Carbon Dioxide Level 21, Anion Gap 11, Blood Urea Nitrogen 29H, Creatinine 0.98, Estimat Glomerular Filtration Rate 87, BUN/Creatinine Ratio 30, Glucose Level 163H, Calcium Level 8.6, Corrected Calcium 9.3, Magnesium Level 1.7, Total Bilirubin 0.5, Aspartate Amino Transf (AST/SGOT) 38H, Alanine Aminotransferase (ALT/SGPT) 135H, Alkaline Phosphatase 133, Total Protein 5.5L, Albumin 3.1L 03/30/22 10:46: Glucometer 239H Microbiology 03/26/22 Gram Stain - Final, Resulted 03/26/22 Wound Culture - Preliminary, Resulted Mixed Bacterial Jewell Pseudomonas aeruginosa Pseudomonas aeruginosa#2 Proteus vulgaris 03/26/22 Blood Culture - Preliminary, Resulted No growth Home Meds Active Ferrous Sulfate 325 Mg (65 Mg Iron) Tablet 325 Mg PO DAILY 30 Days Furosemide 20 Mg Tablet 20 Mg PO DAILY 30 Days Spironolactone 25 Mg Tablet 25 Mg PO DAILY 30 Days Lisinopril 5 Mg Tablet 2.5 Mg PO DAILY 30 Days Carvedilol 3.125 Mg Tablet 3.125 Mg PO BID 30 Days Levofloxacin 750 Mg Tablet 750 Mg PO DAILY@1100 10 Days Reported Clopidogrel (Clopidogrel Bisulfate) 75 Mg Tablet 75 Mg PO DAILY LAST FILLED 06-06-2021 #90/90 DAY SUPPLY Lantus (Insulin Glargine,Hum.rec.anlog) 100 Unit/Ml Vial 40 Units SC HS Novolog (Insulin Aspart) 100 Unit/Ml Susp 5-7 Units SC TID Jardiance (Empagliflozin) 25 Mg Tablet 25 Mg PO HS LAST FILLED 10-29-2021 #90/90 DAY SUPPLY Aspirin EC (Aspirin) 81 Mg Tablet.dr 81 Mg PO HS Atorvastatin Calcium 80 Mg Tablet 40 Mg PO HS TAKES OF AN 80MG TAB Vitamin D3 (Cholecalciferol (Vitamin D3)) 25 Mcg (1000 Unit) Tablet 25 Mcg PO DAILY Cyclobenzaprine HCl 10 Mg Tablet 5-10 Mg PO BID PRN Assessment/Pt Instructions See instructions Discharge Planning: >30 minutes discharge planning Discharge Instructions Discharge Diet: Low Sodium Diet, ADA Diet Activity as Tolerated: Yes Consultations Cardiology, Wound care, TeleICU Discharge Physical Examination Vital Signs Vital Signs Date Time Temp Pulse Resp B/P (MAP) Pulse Ox O2 Delivery O2 Flow Rate FiO2 03/30/22 12:00 93 26 67/34 (45) 94 Room Air 03/30/22 03:45 36.6 03/28/22 08:00 2.00 03/26/22 13:49 21 General Appearance: No Apparent Distress, WD/WN Respiratory: Lungs Clear, No Respiratory Distress Cardiovascular: Regular Rate, Rhythm, No Murmur Gastrointestinal: Normal Bowel Sounds, Soft Extremity: Normal Inspection, No Pedal Edema Skin: Normal Color, Warm/Dry Neurologic/Psychiatric: Alert, Normal Mood/Affect Allergies: Coded Allergies: No Known Drug Allergies (Unverified , 03/26/22) Copy Copies To 1: PERICO GOMEZ MD Copies To 2: MIKHAIL ALVAREZ MD Discharge Summary Date of Admission Mar 26, 2022 at 12:19 Date of Discharge Discharge Date: Mar 30, 2022 Discharge Time: 14:25 Admission Diagnosis NSTEMI Consults/Procedures Consulations Cardiology, Wound care, TeleICU Procedures Left heart cath with balloon angioplasty Discharge Diagnosis NSTEMI Acute HFrEF Likely ischemic cardiomyopathy CAD HLD HTN PAD Iron deficiency anemia T2DM Lactic acidosis, resolved KELVIN, resolved Hyponatremia, resolved High anion gap metabolic acidosis, resolved Hyperkalemia, resolved (1) Non-ST elevation [place] (NSTEMI) Status: Acute (2) Congestive heart failure Status: Acute Qualifiers: Qualified Codes: I50.9 - Heart failure, unspecified (3) Lactic acidosis Status: Resolved (4) KELVIN (acute kidney injury) Status: Resolved (5) HTN (hypertension) Status: Chronic (6) HLD (hyperlipidemia) Status: Chronic (7) CAD (coronary artery disease) Status: Chronic (8) PAD (peripheral artery disease) Status: Chronic (9) Chronic ulcer of left foot due to diabetes mellitus Status: Chronic (10) T2DM (type 2 diabetes mellitus) Status: Chronic Qualifiers: Qualified Codes: E11.65 - Type 2 diabetes mellitus with hyperglycemia; Z79.4 - jail (current) use of insulin (11) Acute HFrEF (heart failure with reduced ejection fraction) Status: Acute BAN WEEKS MD Mar 30, 2022 14:33
== END 2022-03-30 15:55 | disposition home or self-care (01) | DRG 250 ==
LOC: ER FS 08:33 → ICU 12:19
PROVIDERS: ADMIT Internal Medicine; ATTEND Internal Medicine
PROC: 02703ZZ Dilation of Coronary Artery, One Artery, Percutaneous Approach (ICD-10-PCS; principal; 2022-03-29)
PROC: 4A023N7 Measurement of Cardiac Sampling and Pressure, Left Heart, Percutaneous Approach (ICD-10-PCS; 2022-03-29)
PROC: B2111ZZ Fluoroscopy of Multiple Coronary Arteries using Low Osmolar Contrast (ICD-10-PCS; 2022-03-29)
DX: I21.4 Non-ST elevation (NSTEMI) myocardial infarction (principal); A41.9 Sepsis, unspecified organism; I50.21 Acute systolic (congestive) heart failure; E87.20 Acidosis, unspecified; N17.9 Acute kidney failure, unspecified; R65.10 Systemic inflammatory response syndrome (SIRS) of non-infectious origin without acute organ dysfunction; E87.1 Hypo-osmolality and hyponatremia; J90 Pleural effusion, not elsewhere classified; E11.51 Type 2 diabetes mellitus with diabetic peripheral angiopathy without gangrene; D50.9 Iron deficiency anemia, unspecified; I11.0 Hypertensive heart disease with heart failure; E78.5 Hyperlipidemia, unspecified; I25.10 Atherosclerotic heart disease of native coronary artery without angina pectoris; E11.621 Type 2 diabetes mellitus with foot ulcer; L97.529 Non-pressure chronic ulcer of other part of left foot with unspecified severity; I25.5 Ischemic cardiomyopathy; E87.5 Hyperkalemia; Z87.891 Personal history of nicotine dependence; Z20.822 Contact with and (suspected) exposure to COVID-19; E86.0 Dehydration; E11.65 Type 2 diabetes mellitus with hyperglycemia; E11.40 Type 2 diabetes mellitus with diabetic neuropathy, unspecified; Z79.82 Long term (current) use of aspirin; Z79.4 Long term (current) use of insulin; Z79.84 Long term (current) use of oral hypoglycemic drugs; Z79.899 Other long term (current) drug therapy; G89.29 Other chronic pain; M54.9 Dorsalgia, unspecified
CPT/HCPCS: 36415; 71045; 71275; 73630; 80048; 80053; 82728; 82947; 83540; 83550; 83605; 83690; 83735; 83880; 84134; 84145; 84484; 85007; 85025; 85027; 85379; 85610; 85652; 85730; 86141; 86803; 87040; 87070; 87077; 87186; 87205; 87636; 93005; 93041; 93306; 93458; 94640; 94664; Q9967